=== PATIENT | female | born 1940 | race Caucasian/White ===

== ENCOUNTER 2019-05-18 12:37 | Outpatient (RCR) | payer MEDICARE, OTHER, SELFPAY | END 2019-06-16 00:01 | LOC: SPT 12:37 | PROVIDERS: Family Provider Family Medicine; Visit Provider Physician Assistant | DX: Z47.1 Aftercare following joint replacement surgery (principal); Z96.612 Presence of left artificial shoulder joint | CPT/HCPCS: 97110 ×8; 97140; 97161 ==

== ENCOUNTER 2019-06-17 13:59 | Outpatient (RCR) | payer MEDICARE, SELFPAY | END 2019-07-17 23:59 | disposition home or self-care (01) | LOC: SPT 13:59 | PROVIDERS: Family Provider Family Medicine; Visit Provider Physician Assistant | DX: M25.512 Pain in left shoulder (principal); Z96.612 Presence of left artificial shoulder joint | CPT/HCPCS: 97110; 97140 ==

== ENCOUNTER 2019-07-18 06:00 | Outpatient (RCR) | payer MEDICARE, SELFPAY | END 2019-08-15 23:59 | disposition home or self-care (01) | LOC: SPT 06:00 | PROVIDERS: Family Provider Family Medicine; Visit Provider Physician Assistant | DX: Z47.1 Aftercare following joint replacement surgery (principal); Z96.612 Presence of left artificial shoulder joint | CPT/HCPCS: 97110; 97140 ==

== ENCOUNTER 2019-07-23 13:05 | Outpatient (CLI) | payer MEDICARE, SELFPAY ==
--- NOTE | 2019-07-23 13:10 | MM_ITS ---
WS: [id number] SCREENING DIGITAL MAMMOGRAM WITH CAD HISTORY: SCREENING COMPARISON: 06/13/2016, 07/15/2017, 07/22/2018 Bilateral CC and MLO views submitted. Computer aided detection analyzed. Breast composition: There are scattered areas of fibroglandular density. No suspicious masses, microc alcifications or architectural distortion. 4 mm nodule persists in the inferior medial RIGHT breast. Minimal increase in size over multiple prior years. Thought to be a benign lymph node on a prior imag ing study. MM/[id number] IMPRESSION: BI-RADS: 2-Benign FOLLOW UP: 1 Year Follow-up
== END 2019-07-23 13:06 | disposition home or self-care (01) ==
LOC: RADSHAW 13:09
PROVIDERS: Family Provider Family Medicine; PCP Family Medicine; Visit Provider Family Medicine
DX: Z12.31 Encounter for screening mammogram for malignant neoplasm of breast (principal)
CPT/HCPCS: 77067

== ENCOUNTER 2019-08-16 06:00 | Outpatient (RCR) | payer MEDICARE, SELFPAY | END 2019-09-15 23:59 | disposition home or self-care (01) | LOC: SPT 06:00 | PROVIDERS: Family Provider Family Medicine; PCP Family Medicine; Visit Provider Physician Assistant | DX: Z47.1 Aftercare following joint replacement surgery (principal); Z96.612 Presence of left artificial shoulder joint | CPT/HCPCS: 97110 ==

== ENCOUNTER 2019-12-14 09:58 | Outpatient (CLI) | payer MEDICARE, SELFPAY ==
[2019-12-14 10:36] LABS: Basophils % 0.4 %; Eosinophils # 0.1 10^3/uL (0.0-0.8); Hematocrit 39.1 % (37.0-47.0); Hemoglobin 12.9 g/dL (11.5-15.3); Lymphocytes # 1.3 10^3/uL (0.8-4.8); Lymphocytes % 25.4 %; Mean Platelet Volume 9.1 fL (7.4-10.4); Monocytes # 0.6 10^3/uL (0.2-0.9); Monocytes % 11.8 %; Neutrophils % 60.2 %; Nucleated Red Blood Cells % 0 %; Platelet Count 252 10^3/cmm (130-400); Red Blood Count 4.16 10^6/uL (4.1-5.3); Red Cell Distribution Width 12.5 % (12.1-15.1)
[2019-12-14 10:58] LABS: Alanine Aminotransferase 18 U/L (0-33); Albumin Level 4.5 g/dL (3.5-5.2); Alkaline Phosphatase 93 IU/L (35-105); Anion Gap 15.2 (5-19); Aspartate Amino Transferase 21 U/L (0-32); Blood Urea Nitrogen 16 mg/dL (8-23); Calcium 9.7 mg/dL (8.5-10.5); Carbon Dioxide 27 mmol/L (22-29); Chloride 101 mmol/L (98-107); Glucose 96 mg/dL (65-115); Osmolality Calculated 284 mOsm/kg (285-295); Potassium 4.2 mmol/L (3.5-5.1); Sodium 139 mmol/L (136-145); Total Bilirubin 0.2 mg/dL (0.15-1.2); Total Protein 7.5 g/dL (6.6-8.7)
[2019-12-14 12:40] LABS: CA 125 7.4 U/mL (0-35)
[2019-12-14 13:07] LABS: Erythrocyte Sedimentation Rate 13 mm/hr (0-15)
--- NOTE | 2019-12-15 06:39 | ONC FU_ITS ---
Dr. Welsh Patient Follow-Up Note Patient: Giovana Castillo Unit #: [id number]: 1940 Dicatated By: Dimitri Welsh M.D.Date of Visit:Dec 14, 2019 Onc Med Follow-up/Prog Note Chief Complaint: Ovarian cancer. 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 She underwent hysterectomy/bilateral salpingo-oophorectomy in April of 2010. 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 The tumor measured 9.5 x 8 x 6 cm. In May of 2010 she underwent a staging procedure with robotic-assisted pelvic and periaortic lymphadenectomy, omentectomy, and with biopsies of the paracolic gutters bilaterally, bilateral pelvic peritoneum, anterior and posterior cul-de-sac, and right hemidiaphragm. There was no evidence of residual malignancy in any of those specimens, and the pelvic and abdominal washings also were negative. Because of the histology of the tumor, she was advised to undergo adjuvant chemotherapy. She was given 6 cycles of carboplatin/Taxol, which she completed in October of 2010. Thus far during followup there has been no evidence of recurrence. Her other medical illnesses include GERD, degenerative arthritis, osteopenia, and depression. She is a nonsmoker. She is seen for a scheduled visit. She has been feeling good generally. She does have some fatigue, and she also complains that her legs feel weak, but she says she keeps going. ECOG score is 1. She has good appetite. She has not had fever. She does have some hot flashes. She has been having sinus drainage, and she complains that her right ear is clogged. She occasionally has burning in her mouth, and she also occasionally has sore throat. She does not complain of cough, and she is not having shortness of breath or chest pain. Her acid reflux is adequately managed with omeprazole. She has no other GI or complaints. She does complain of having generalized soreness. Her most significant pain is in the shoulder areas, and she has had some ongoing problems with her left shoulder following a total shoulder replacement in March 2019. She does not complain of headache or dizziness. She has no focal neurologic symptoms. Medications: AmLODIPine Besylate 1 Tablet (of 5 mg) Oral daily, Magnesium 300 mg - Take 1 Capsule Oral daily, Multiple Vitamin 1 Tablet Oral daily, Omeprazole 1 (20 mg) Capsule Delayed Release Oral daily, TraZODone HCl 0.5 (150 mg) Tablet Oral at bedtime, Vitamin D (Cholecalciferol) 1 Tablet (of 400 Units) Oral daily, Zoloft 1 (50 mg) Tablet Oral daily Allergies: Benadryl and Codeine Sulfate. Review of Systems: Constitutional - She has some fatigue and her activity is limited due to joint pain. She has good appetite. She has not had fever. She still has some hot flashes. ECOG score is 1, ENMT - She complains that her right ear is clogged. She has sinus drainage. She occasionally has burning in her mouth she occasionally has sore throat. She has no difficulty swallowing, Hematologic/Lymphatic - No abnormal bruising or bleeding, Respiratory - No shortness of breath. No cough. No pleuritic pain or hemoptysis, Cardiovascular - No angina pain. No palpitations, Gastrointestinal - No nausea or vomiting. She has acid reflux. It is managed adequately with omeprazole. No diarrhea or constipation. No blood in the stool or black stools, Genitourinary (F) - No dysuria or hematuria. No urinary frequency. No urgency or incontinence, Musculoskeletal - She has generalized joint pain and soreness, but especially in the shoulders. She has had a left shoulder replacement. She complains that her legs feel weak, Integumentary - , Neurologic - No headache or dizziness. No numbness or tingling. No other focal neurologic symptoms, Psychiatric - No anxiety or depression. No insomnia. Vital Signs: Performed on Dec 14, 2019 11:31 Height - 63.00 in Weight - 152.4 lbs (HIGH) BSA - 1.72 sq.m BMI - 27.00 Temperature - 98.3 F (LOW) Pulse - 81 /min Respiration - 18 /min BP - 133/72 mm(hg) O2 Sat - 98 % Pain - 0 Physical Examination: Constitutional - She looks pretty good generally, Eyes - Sclerae nonicteric. Conjunctivae clear, ENMT - Her right external ear canal is occluded with cerumen. There are no lesions noted in the oral cavity, Hematologic/Lymphatic - No cervical, clavicular, or axillary adenopathy, Respiratory - Lungs are clear with good air movement bilaterally, Cardiovascular - Heart rhythm is regular. There is a II/ systolic murmur. There is no gallop or rub noted, Abdomen - Soft. Liver and spleen are not enlarged. There is no abdominal mass or ascites noted and there is no inguinal adenopathy, Extremities - No edema, Neurologic - No focal neurologic deficits noted. Lab/Imaging: Test performed on Dec 14, 2019 10:11 Sodium 139 mmol/L Potassium 4.2 mmol/L Chloride 101 mmol/L CO2 27 mmol/L Anion Gap 15.2 BUN 16 mg/dL Creatinine 0.6 mg/dL Cr Clearance (Est) 85.69 mL/min Glucose 96 mg/dL Calcium 9.7 mg/dL Protein, Total 7.5 g/dL Albumin 4.5 g/dL Globulin 3.0 g/dL Bilirubin, Total 0.2 mg/dL ALT (SGPT) 18 U/L AST (SGOT) 21 U/L Alkaline Phosphatase 93 IU/L ESR (Sed Rate) 13 mm/hr WBC 5.0 10 3/uL RBC 4.16 10 6/uL HGB 12.9 g/dL HCT 39.1 % MCV 94.0 fL MCH 31.0 pg MCHC 33.0 g/dL RDW 12.5 % Platelet Count 252 10 3/cmm MPV 9.1 fL Neutrophils 3.0 10 3/uL Lymphocytes 1.3 10 3/uL Monocytes 0.6 10 3/uL Eosinophils 0.1 10 3/uL Basophils 0.0 10 3/uL Neutrophil % 60.2 % Lymphocyte % 25.4 % Monocyte % 11.8 % Eosinophil % 2.0 % Basophils % 0.4 % NRBC % 0 % CA-125 7.4 U/mL Impression: 1. 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 She had complete resection with surgery which included hysterectomy/bilateral salpingo-oophorectomy in April 2010 followed by robotic-assisted pelvic and periaortic lymphadenectomy, omentectomy, and staging biopsies in May 2010. 2. Due to the histology of the tumor, she was given adjuvant chemotherapy with 6 cycles of carboplatin/Taxo, completed in October 2010. She has since then been followed on observation/expectant management. Her other medical illnesses include: 3. GERD. 4. Degenerative arthritis. 5. Osteopenia. 6. She has a history of depression. She has been followed on observation/expectant management after completing chemotherapy. During follow-up she has had some gradual decline in her activity tolerance, but overall she has been doing well clinically with no evidence of recurrence of the ovarian cancer. Plan: She remains on observation/expectant management. I will see her again in one year. Signed By: Dimitri Welsh M.D. <<Signature on File>>
== END 2019-12-14 09:59 | disposition home or self-care (01) ==
PROVIDERS: PCP Family Medicine; Visit Provider Internal Medicine Medical Oncology
DX: Z08 Encounter for follow-up examination after completed treatment for malignant neoplasm (principal); Z85.43 Personal history of malignant neoplasm of ovary; K21.9 Gastro-esophageal reflux disease without esophagitis; M19.90 Unspecified osteoarthritis, unspecified site; M85.80 Other specified disorders of bone density and structure, unspecified site; Z86.59 Personal history of other mental and behavioral disorders; Z92.21 Personal history of antineoplastic chemotherapy; Z90.710 Acquired absence of both cervix and uterus; Z90.722 Acquired absence of ovaries, bilateral
CPT/HCPCS: 80053; 85025; 85651; 86304; G0463

== ENCOUNTER 2020-02-11 16:09 | Outpatient (CLI) | payer MEDICARE, SELFPAY ==
--- NOTE | 2020-02-11 16:27 | MR_ITS ---
WS: [id number] MRI LUMBAR SPINE NONCONTRAST TECHNIQUE: Sagittal T1, T2 and STIR imaging. Axial T1 and T2 imaging. CLINICAL INFORMATION: LUMBAR RADICULOPATHY COMPARISON: None. FINDINGS: Mild lumbar curve. No acute compression. Grade 1 anterolisthesis L3 on L4. Moderate to severe central canal stenosis L3-4 unchanged since 2017. L1-L2: Normal. L2-L3: Mild disc bulging with osteophytic ridging. Narrowing of the left greater than right subarticu lar recess. Mild facet arthropathy. Mild left foraminal narrowing. Mild central canal stenosis. L3-L4: Grade 1 anterolisthesis L3 on L4 with severe central canal stenosis. Moderate facet arthropath y ligament flavum hypertrophy. Moderate bilateral foraminal narrowing worse on the left. L4-L5: Mild disc bulging with impingement left subarticular recess. Slight effacement of ventral thec al sac. Foramen are patent. Prior left hemilaminectomy. L5-S1: Small central disc protrusion with slight contact of the traversing S1 nerve roots with mild c entral canal stenosis. Moderate left and no significant right foraminal narrowing. Mild facet arthrop athy. Moderate thoracic kyphosis visualized on multi [employer] imaging. MR/MR lumbar spine wo con* [id number] IMPRESSION: 1. Severe central canal stenosis L3-4 with grade 1 anterolisthesis. This appea rs unchanged since 2017. 2. Mild central canal stenosis L2-3 with narrowing of the left greater than ri ght subarticular recess. 3. Prior left hemilaminectomy L4-5. 4. Tiny central disc protrusion L5-S1 with slight contact of the traversing S1 nerve roots. 5. Multilevel mild to moderate foraminal narrowing worse at bilateral L3-4, an d left L5-S1.
== END 2020-02-11 16:10 | disposition home or self-care (01) ==
PROVIDERS: PCP Family Medicine; Visit Provider Physical Medicine & Rehabilitation
DX: M54.16 Radiculopathy, lumbar region (principal); R29.898 Other symptoms and signs involving the musculoskeletal system; M48.061 Spinal stenosis, lumbar region without neurogenic claudication; M96.1 Postlaminectomy syndrome, not elsewhere classified; M51.27 Other intervertebral disc displacement, lumbosacral region
CPT/HCPCS: 72148

== ENCOUNTER 2020-07-25 09:42 | Outpatient (CLI) | payer MEDICARE, SELFPAY ==
--- NOTE | 2020-07-25 09:46 | MM_ITS ---
WS: [id number] BILATERAL SCREENING DIGITAL MAMMOGRAM WITH CAD HISTORY: SCREENING COMPARISON: 07/23/2019 and 07/22/2018 Bilateral CC and MLO views submitted. Computer aided detection analyzed. Breast composition: There are scattered areas of fibroglandular density. No suspicious masses, microc alcifications or architectural distortion. Benign lymph node in the anterior medial RIGHT breast. MM/[id number] IMPRESSION: BI-RADS: 2-Benign FOLLOW UP: 1 Year Follow-up
== END 2020-07-25 09:43 | disposition home or self-care (01) ==
LOC: RADSHAW 09:44
PROVIDERS: PCP Family Medicine; Visit Provider Family Medicine
DX: Z12.31 Encounter for screening mammogram for malignant neoplasm of breast (principal)
CPT/HCPCS: 77067

== ENCOUNTER 2020-10-26 14:41 | Outpatient (CLI) | payer MEDICARE, SELFPAY ==
--- NOTE | 2020-10-26 14:44 | CT_ITS ---
WS: [id number] CT THORACIC SPINE TECHNIQUE: Noncontrast CT of the thoracic spine with coronal and sagittal reformatted images. CLINICAL INFORMATION: T SPINE PAIN COMPARISON: None. DLP: 424.[address] scans at [facility] use at least one of these dose optimization techniques: automat ed exposure control; mA and/or kV adjustment per patient size (includes targeted exams where dose is matched to clinical indication); or iterative reconstruction. FINDINGS: Advanced thoracic kyphosis. Mild thoracic curve. Chronic anterior wedging in the mid thoracic spine w ith bony ankylosis. Alignment is similar in appearance to the MRI February 11, 2020. Hypertrophic genao es in the mid thoracic spine. No acute appearing compression fractures. Chronic appearing anterior wedging at T8 and T9. Disc space narrowing worse at T7-8, T8-9 T9-10. No h igh-grade central canal stenosis. Mild chronic emphysematous changes. Visualized lungs are well aerated. Calcified right hilar nodes. P ostoperative changes left TSA. Adrenal glands are normal. CT/CT thoracic spin wo con* [id number] IMPRESSION: 1. Moderate thoracic kyphosis. Chronic anterior wedging in the mid thoracic sp ine more prominent at T8 and T9. No acute appearing compression fractures. 2. Disc space narrowing worse at T7-T9. 3. 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 4. No high-grade central canal stenosis. 5. No acute appearing thoracic spine findings.
== END 2020-10-26 14:42 | disposition home or self-care (01) ==
LOC: RADWPI 14:43
PROVIDERS: PCP Family Medicine; Visit Provider Family Medicine
DX: M54.6 Pain in thoracic spine (principal); M43.24 Fusion of spine, thoracic region; M40.294 Other kyphosis, thoracic region; M48.54XA Collapsed vertebra, not elsewhere classified, thoracic region, initial encounter for fracture; X58.XXXA Exposure to other specified factors, initial encounter
CPT/HCPCS: 72128

== ENCOUNTER → 2020-11-04 08:41 | Outpatient (BNVA) | payer MEDICARE, SELFPAY | PROVIDERS: PCP Family Medicine; Referring Provider Family Medicine; Visit Provider Anesthesiology Pain Medicine | DX: G89.29 Other chronic pain (principal); M79.18 Myalgia, other site; M54.9 Dorsalgia, unspecified; M51.36 Other intervertebral disc degeneration, lumbar region; M47.816 Spondylosis without myelopathy or radiculopathy, lumbar region; M54.16 Radiculopathy, lumbar region; M48.062 Spinal stenosis, lumbar region with neurogenic claudication; M47.814 Spondylosis without myelopathy or radiculopathy, thoracic region; Z79.891 Long term (current) use of opiate analgesic; Z98.890 Other specified postprocedural states | CPT/HCPCS: 20553; 99205; J1030; J3490 ==

== ENCOUNTER → 2020-12-02 09:05 | Outpatient (BNVA) | payer MEDICARE, SELFPAY | PROVIDERS: PCP Family Medicine; Visit Provider Anesthesiology Pain Medicine | DX: G89.29 Other chronic pain (principal); M48.062 Spinal stenosis, lumbar region with neurogenic claudication; M51.36 Other intervertebral disc degeneration, lumbar region; M47.816 Spondylosis without myelopathy or radiculopathy, lumbar region; M47.814 Spondylosis without myelopathy or radiculopathy, thoracic region; M54.16 Radiculopathy, lumbar region; M54.9 Dorsalgia, unspecified; Z98.890 Other specified postprocedural states; Z87.891 Personal history of nicotine dependence | CPT/HCPCS: 99215 ==

== ENCOUNTER → 2020-12-12 12:57 | Outpatient (BNVA) | payer MEDICARE, SELFPAY | PROVIDERS: PCP Family Medicine; Visit Provider Anesthesiology Pain Medicine | DX: G89.29 Other chronic pain (principal); M54.6 Pain in thoracic spine; M48.062 Spinal stenosis, lumbar region with neurogenic claudication | CPT/HCPCS: 62321 ==

== ENCOUNTER 2020-12-14 09:54 | Outpatient (CLI) | payer MEDICARE, SELFPAY ==
[2020-12-14 10:28] LABS: Basophils % 0.3 %; Eosinophils % 0.5 %; Hematocrit 40.2 % (37.0-47.0); Hemoglobin 13.3 g/dL (11.5-15.3); Lymphocytes # 1.1 10^3/uL (0.8-4.8); Lymphocytes % 19.1 %; Mean Corpuscular HGB Conc 33.1 g/dL (30.0-36.0); Mean Corpuscular Hemoglobin 30.6 pg (28.0-34.0); Mean Corpuscular Volume 92.6 fL (81-99); Mean Platelet Volume 9.4 fL (7.4-10.4); Monocytes # 0.6 10^3/uL (0.2-0.9); Monocytes % 9.7 %; Neutrophils # 4.06 10^3/uL (1.8-7.7); Neutrophils % 70.1 %; Nucleated Red Blood Cells % 0 %; Platelet Count 226 10^3/cmm (130-400); Red Blood Count 4.34 10^6/uL (4.1-5.3); Red Cell Distribution Width 12.5 % (12.1-15.1); White Blood Count 5.8 10^3/uL (4.0-10.0)
[2020-12-14 10:59] LABS: Alanine Aminotransferase 15 U/L (0-33); Albumin Level 4.3 g/dL (3.5-5.2); Alkaline Phosphatase 84 IU/L (35-105); Anion Gap 10.9 (5-19); Aspartate Amino Transferase 16 U/L (0-32); Blood Urea Nitrogen 14 mg/dL (8-23); CA 125 6.7 U/mL (0-35); Carbon Dioxide 28 mmol/L (22-29); Chloride 101 mmol/L (98-107); Globulin 2.5 g/dL (1.3-4.6); Glucose 125 mg/dL (65-115); Osmolality Calculated 284 mOsm/kg (285-295); Potassium 3.9 mmol/L (3.5-5.1); Sodium 136 mmol/L (136-145); Total Bilirubin 0.3 mg/dL (0.15-1.2); Total Protein 6.8 g/dL (6.6-8.7)
--- NOTE | 2020-12-14 12:33 | ONC FU_ITS ---
Dr. Welsh Patient Follow-Up Note Patient: Giovana Castillo Unit #: [id number]: [id number] Dicatated By: Dimitri Welsh M.D.Date of Visit:Dec 14, 2020 Onc Med Follow-up/Prog Note Chief Complaint: Ovarian cancer. 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 She underwent hysterectomy/bilateral salpingo-oophorectomy in April of 2010. 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 The tumor measured 9.5 x 8 x 6 cm. In May of 2010 she underwent a staging procedure with robotic-assisted pelvic and periaortic lymphadenectomy, omentectomy, and with biopsies of the paracolic gutters bilaterally, bilateral pelvic peritoneum, anterior and posterior cul-de-sac, and right hemidiaphragm. There was no evidence of residual malignancy in any of those specimens, and the pelvic and abdominal washings also were negative. Because of the histology of the tumor, she was advised to undergo adjuvant chemotherapy. She was given 6 cycles of carboplatin/Taxol, which she completed in October of 2010. Thus far during followup there has been no evidence of recurrence. Her other medical illnesses include GERD, degenerative arthritis, osteopenia, and depression. She is a nonsmoker. She is seen for a scheduled visit. Her main complaint is that she has been having more back pain, more recently in the upper back, which she has pain in the lumbar area as well. She has been getting treatment through the pain clinic. She underwent an attempted epidural injection at the T8/9 level 2 days ago. The epidural space was not able to be accessed due to her severe kyphotic curve. Despite the fact that the procedure was unsuccessful, her pain has improved somewhat since then. She does have limited activity, but she is still able to do housework. ECOG score is 1. Her appetite is good. She does not have fever or night sweats. She has some allergy related sinus drainage and she says that at times it feels like there is a lump in her throat. She does not have shortness of breath, cough, or chest pain. She has no GI complaints. Her acid reflux is adequately managed with omeprazole. She sometimes has urgency with urination, but bladder function remains adequate. She has no other joint or bone pain. She does not complain of headache. She says her balance is not real good. She has no focal neurologic symptoms. Medications: AmLODIPine Besylate 1 Tablet (of 5 mg) Oral daily, Magnesium 300 mg - Take 1 Capsule Oral daily, Multiple Vitamin 1 Tablet Oral daily, Omeprazole 1 (20 mg) Capsule Delayed Release Oral daily, TraZODone HCl 0.5 (150 mg) Tablet Oral at bedtime, Vitamin D (Cholecalciferol) 1 Tablet (of 400 Units) Oral daily, Zoloft 1 (50 mg) Tablet Oral daily Allergies: Benadryl and Codeine Sulfate. Vital Signs: Weight is 152 pounds. Blood pressure 142/80, pulse 77, respirations 18, temp 97.7 degrees, and oxygen saturation 97%. Physical Examination: Constitutional - She looks pretty good generally, Eyes - Sclerae nonicteric. Conjunctivae clear, ENMT - No lesions noted in the oral cavity, Hematologic/Lymphatic - No cervical, clavicular, or axillary adenopathy, Respiratory - Lungs are clear with good air movement bilaterally, Cardiovascular - Heart rhythm is regular. There is a II/ systolic murmur. There is no gallop or rub noted, Abdomen - Soft. Liver and spleen are not enlarged. There is no abdominal mass or ascites noted and there is no inguinal adenopathy, Extremities - There is some chronic swelling of the left leg, Neurologic - No focal neurologic deficits noted. Lab/Imaging: Test performed on Dec 14, 2020 10:08 Sodium 136 mmol/L Potassium 3.9 mmol/L Chloride 101 mmol/L CO2 28 mmol/L Anion Gap 10.9 BUN 14 mg/dL Creatinine 0.5 mg/dL Cr Clearance (Est) 101.2000 mL/min Glucose 125 mg/dL Osmolality - Calculated 284 mOsm/kg Calcium 9.0 mg/dL Protein, Total 6.8 g/dL Albumin 4.3 g/dL Globulin 2.5 g/dL Bilirubin, Total 0.3 mg/dL ALT (SGPT) 15 U/L AST (SGOT) 16 U/L Alkaline Phosphatase 84 IU/L WBC 5.8 10 3/uL RBC 4.34 10 6/uL HGB 13.3 g/dL HCT 40.2 % MCV 92.6 fL MCH 30.6 pg MCHC 33.1 g/dL RDW 12.5 % Platelet Count 226 10 3/cmm MPV 9.4 fL Neutrophils 4.06 10 3/uL Lymphocytes 1.1 10 3/uL Monocytes 0.6 10 3/uL Eosinophils 0.0 10 3/uL Basophils 0.0 10 3/uL Neutrophil % 70.1 % Lymphocyte % 19.1 % Monocyte % 9.7 % Eosinophil % 0.5 % Basophils % 0.3 % NRBC % 0 % CA-125 6.7 U/mL Problem List: 1. Clear cell carcinoma of the left ovary, stage I. She had complete resection with surgery which included hysterectomy/bilateral salpingo-oophorectomy in April 2010 followed by robotic-assisted pelvic and periaortic lymphadenectomy, omentectomy, and staging biopsies in May 2010. 2. GERD. 3. Degenerative arthritis/degenerative disease of the spine. 5. Osteopenia. 6. She has a history of depression. 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 She had complete resection with surgery which included hysterectomy/bilateral salpingo-oophorectomy in April 2010 followed by robotic-assisted pelvic and periaortic lymphadenectomy, omentectomy, and staging biopsies in May 2010. Due to the histology of the tumor, she was given adjuvant chemotherapy with 6 cycles of carboplatin/Taxol, completed in October 2010. She was then followed on expectant management. During follow-up she has been doing pretty well clinically. During the past year she has had increasing problems associated with degenerative disease of the spine, for which she has been receiving treatment through the pain clinic. There has been no evidence, though, of recurrence of her ovarian cancer, now 10 years out from completion of treatment. She remains on expectant management. She is aware of the need to continue with her yearly mammogram screening and she also should have a yearly CA-125 level. At this point she is going to continue her regular follow-up with Dr. Wyatt. I will plan to see her again only as needed. Signed By: Dimitri Welsh M.D. <<Signature on File>>
== END 2020-12-14 09:55 | disposition home or self-care (01) ==
LOC: ONCMED 10:00
PROVIDERS: PCP Family Medicine; Visit Provider Internal Medicine Medical Oncology
DX: Z08 Encounter for follow-up examination after completed treatment for malignant neoplasm (principal); Z85.43 Personal history of malignant neoplasm of ovary; Z90.710 Acquired absence of both cervix and uterus; Z90.79 Acquired absence of other genital organ(s); Z90.722 Acquired absence of ovaries, bilateral; K21.9 Gastro-esophageal reflux disease without esophagitis; M47.9 Spondylosis, unspecified; M85.80 Other specified disorders of bone density and structure, unspecified site; Z92.21 Personal history of antineoplastic chemotherapy; Z79.899 Other long term (current) drug therapy
CPT/HCPCS: 36415; 80053; 85025; 86304; G0463

== ENCOUNTER → 2020-12-26 09:26 | Outpatient (BNVA) | payer MEDICARE, SELFPAY | PROVIDERS: PCP Family Medicine; Visit Provider Anesthesiology Pain Medicine | DX: G89.29 Other chronic pain (principal); M54.16 Radiculopathy, lumbar region; M48.062 Spinal stenosis, lumbar region with neurogenic claudication; M51.36 Other intervertebral disc degeneration, lumbar region; M47.816 Spondylosis without myelopathy or radiculopathy, lumbar region; M47.814 Spondylosis without myelopathy or radiculopathy, thoracic region; M54.9 Dorsalgia, unspecified; Z98.890 Other specified postprocedural states; Z79.891 Long term (current) use of opiate analgesic | CPT/HCPCS: 99214 ==

== ENCOUNTER 2021-08-11 16:30 | Inpatient (IN) | payer MEDICARE, SELFPAY ==
[2021-08-11] VITALS (7 sets, daily range): BP systolic 119–210; BP diastolic 73–95; PULSE 75–103; RESP 15–18; TEMP 36.4–36.5; O2SAT 94–99; BMI 27.4; BMI 28.0
--- NOTE | 2021-08-11 16:34 | ED_ITS ---
Documented by User: Marcelino Landers DO 08/12/21 07:30 HPI - Fall General: Chief Complaint: Extremity Injury, Upper Stated Complaint: FALL Time Seen by Provider: 08/11/21 16:33 Source: patient Mode of arrival: EMS History of Present Illness: 81-year-old female presents emergency room via EMS complaining of right humerus pain. It began after she fell at home she stumbled as she was turning and fell and hit a cabinet as she went down there with her right shoulder she denies striking her head she denies any loss consciousness. Denies any chest pain or shortness of breath. Previously fell on the lef shoulder injury several years ago. MD complaint: fall Onset (ago): minute(s) Fall from: standing Fall witnessed: no Place fall occurred: home Loss of consciousness: None Prolonged down time: no Symptoms prior to fall: none Context: tripped/slipped Location of injury: head Location of injury - extremities: Right: shoulder and arm Severity: severe Quality: sharp Associated symptoms-after fall: Denies abdominal pain, chest pain, confusion, difficulty walking, headache(s), hematuria, lightheadedness, neck pain, numbness, short of breath, vertigo or weakness Review of Systems Const: Denies: fever(s), chills, body aches, change in appetite, fatigue or malaise ENMT: Denies: throat pain, ear or mastoid pain, nasal discharge or nasal congestion Card: Denies: chest pain or lightheadedness Resp: Denies: dyspnea, productive cough or non-productive cough GI: Denies: abdominal pain : Denies: hematuria Musc: Denies: neck pain Skin/Breast: Denies: rash or pruritus Neuro: Denies: headache(s), difficulty walking, vertigo or confusion PFSH ED PFSH: Medical History Depression Family history of malignant melanoma History of ovarian cancer Left bundle branch block Ovarian cancer Surgical History H/O total hysterectomy History of hysterectomy History of left knee replacement Family History Mother Stroke Hypertension Social History Smoking and tobacco status: never smoked Alcohol intake: never Marital status: Physical Exam Const: GENERAL APPEARANCE: cooperative ORIENTATION/CONSCIOUSNESS: Yes awake, Yes oriented to person, Yes oriented to place and Yes oriented to time HENMT: COMMON NORMALS: normocephalic, atraumatic and hearing grossly normal bilaterally HEAD & SCALP: normocephalic and atraumatic Neck/C-Spine: COMMON NORMALS: no JVD Resp: COMMON NORMALS: normal respiratory effort, No retractions, No use of accessory muscles and clear to auscultation bilaterally AUSCULTATION: clear to auscultation bilaterally Cardio: COMMON NORMALS: no JVD, regular rate, regular rhythm and No murmurs present (Cardio) RATE: regular rate RHYTHM: regular rhythm GI: COMMON NORMALS: Soft to palpation and No hepatosplenomegaly present AUSCULTATION: Yes normoactive bowel sounds PALPATION: Yes Soft to palpation, No Tenderness to palpation present (GI), No Guarding due to palpation present (GI) and Yes No hepatosplenomegaly present Extremity: OTHER: Obvious deformity of the proximal humerus on the right combined with her history consistent with a proximal humerus fracture Neuro: SENSORIUM/ORIENTATION: Yes oriented to person, Yes oriented to place and Yes oriented to time Skin: COMMON NORMALS: no rashes or lesions noted GENERAL SKIN EXAM: no rashes or lesions noted Course Vital Signs: Vital signs: Vital Signs Temperature 98.2 F 08/12/21 07:25 Pulse Rate 77 08/12/21 07:25 Respiratory Rate 16 08/12/21 07:25 Blood Pressure 146/82 08/12/21 07:25 Pulse Oximetry 95 08/12/21 07:25 MDM - Fall Medical Decision Making Plain films show proximal humerus fracture him concerned that it appears the head of the humerus may be dislocated. It is disarticulated from the shaft due to the fracture. However it does not appear to be anterior. Is difficult to tell based on plain film CT is pending. care signed out to Dr. Zepeda at change of shift. See final notes for diagnosis and disposition. 81-year-old patient post fall checked out to me by Dr. Landers at shift change. This lady has a humeral neck fracture, that is significantly displaced. On CT, she is in joint. She has had 3 doses of morphine and 1 dose of fentanyl in the ER without significantly controlled pain. She is neurologically intact, and there is no wrist drop present. Her pulses are good. She is treated with a shoulder immobilizer. The patient does not appear that she would do well at home, as she is somewhat frail, has an elderly , and has yet to have her pain controlled. She will be admitted. Orthopedics was consulted by phone from the ER. Lab Data : 08/12/21 05:20 08/12/21 05:20 Radiology Impressions Shoulder X-Ray 08/11/21 16:40 IMPRESSION: 1. Comminuted displaced proximal right humerus fracture. Humerus X-Ray 08/11/21 16:41 IMPRESSION: 1. Comminuted displaced fracture in the proximal right humerus. 2. Inferior subluxation of the humeral head. A dislocation cannot be entirely excluded. Consider follow-up with CT imaging. ADDENDUM: 08/11/21 1706 This study is correlated to the right shoulder images on 08/11/2021. There is no evidence for shoulder dislocation. Inferior subluxation may relate to a hemarthrosis. Shoulder CT 08/11/21 17:25 IMPRESSION: 1. Severely comminuted displaced fracture in the proximal right humerus involving the head and neck. Laboratory Results WBC 7.0 10^3/uL (4.0-10.0) 08/11/21 17:15 RBC 4.47 10^6/uL (4.1-5.3) 08/11/21 17:15 Hgb 13.7 g/dL (11.5-15.3) 08/11/21 17:15 Hct 41.6 % (37.0-47.0) 08/11/21 17:15 MCV 93.1 fl (81-99) 08/11/21 17:15 MCH 30.6 pg (28.0-34.0) 08/11/21 17:15 MCHC 32.9 g/dL (30.0-36.0) 08/11/21 17:15 RDW 12.6 % (12.1-15.1) 08/11/21 17:15 Plt Count 202 10^3/cmm (130-400) 08/11/21 17:15 MPV 9.3 fL (7.4-10.4) 08/11/21 17:15 Neut % (Auto) 74.8 % 08/11/21 17:15 Lymph % (Auto) 16.7 % 08/11/21 17:15 Banks % (Auto) 6.8 % 08/11/21 17:15 Eos % (Auto) 0.7 % 08/11/21 17:15 Baso % (Auto) 0.3 % 08/11/21 17:15 Neut # (Auto) 5.21 10^3/uL (1.8-7.7) 08/11/21 17:15 Lymph # (Auto) 1.2 10^3/uL (0.8-4.8) 08/11/21 17:15 Banks # (Auto) 0.5 10^3/uL (0.2-0.9) 08/11/21 17:15 Eos # (Auto) 0.1 10^3/uL (0.0-0.8) 08/11/21 17:15 Baso # (Auto) 0.0 10^3/uL (0.0-0.1) 08/11/21 17:15 Nucleated RBC % (auto) 0 % 08/11/21 17:15 Nucleated RBCs # 0.0 /100WBC 08/11/21 17:15 Sodium 135 mmol/L (136-145) L 08/11/21 19:18 Potassium 3.4 mmol/L (3.5-5.1) L 08/11/21 19:18 Chloride 98 mmol/L (98-107) 08/11/21 19:18 Carbon Dioxide 26 mmol/L (22-29) 08/11/21 19:18 Anion Gap 14.4 (5-19) 08/11/21 19:18 BUN 17 mg/dL (8-23) 08/11/21 19:18 Creatinine 0.6 mg/dL (0.5-0.9) 08/11/21 19:18 GFR Calculation Not Reportable 08/11/21 19:18 Glucose 122 mg/dL (65-115) H 08/11/21 19:18 Calculated Osmolality 283 mOsm/kg (285-295) L 08/11/21 19:18 Calcium 9.4 mg/dL (8.5-10.5) 08/11/21 19:18 Total Bilirubin 0.3 mg/dL (0.15-1.2) 08/11/21 19:18 AST 23 U/L (0-32) 08/11/21 19:18 ALT 16 U/L (0-33) 08/11/21 19:18 Alkaline Phosphatase 78 IU/L (35-105) 08/11/21 19:18 Total Protein 7.3 g/dL (6.6-8.7) 08/11/21 19:18 Albumin 4.4 g/dL (3.5-5.2) 08/11/21 19:18 Globulin 2.9 g/dL (1.3-4.6) 08/11/21 19:18 Discharge Plan Discharge Patient Disposition: Admitted As Inpatient Admit Provider: Dale Enriquez Clinical Impression: Fracture of humerus Qualifiers: Encounter type: initial encounter Humerus Location: surgical neck Fracture type: closed Fracture morphology: 2-part Fracture alignment: displaced Laterality: right Qualified Code(s): S42.221A - 2-part displaced fracture of lewis gical neck of right humerus, initial encounter for closed fracture Condition: Fair Coding Level of Care Code ED Director Of Field Coordination for Chg Fwd Exam Comprehensive Documented by User: Krish Zepeda DO 08/11/21 22:53 HPI - Fall General: Chief Complaint: Extremity Injury, Upper Stated Complaint: FALL Time Seen by Provider: 08/11/21 16:33 PFSH ED PFSH: Medical History Depression Family history of malignant melanoma History of ovarian cancer Left bundle branch block Ovarian cancer Surgical History H/O total hysterectomy History of hysterectomy History of left knee replacement Family History Mother Stroke Hypertension Social History Smoking and tobacco status: never smoked Alcohol intake: never Marital status: Course Consultations: Consultation #1: az Consultation #2: annmarie Vital Signs: Vital signs: Vital Signs Temperature 98.2 F 08/12/21 07:25 Pulse Rate 77 08/12/21 07:25 Respiratory Rate 16 08/12/21 07:25 Blood Pressure 146/82 08/12/21 07:25 Pulse Oximetry 95 08/12/21 07:25 MDM - Fall Medical Decision Making 81-year-old patient post fall checked out to me by Dr. Landers at shift change. This lady has a humeral neck fracture, that is significantly displaced. On CT, she is in joint. She has had 3 doses of morphine and 1 dose of fentanyl in the ER without significantly controlled pain. She is neurologically intact, and there is no wrist drop present. Her pulses are good. She is treated with a shoulder immobilizer. The patient does not appear that she would do well at home, as she is somewhat frail, has an elderly , and has yet to have her pain controlled. She will be admitted. Orthopedics was consulted by phone from the ER. Lab Data : 08/12/21 05:20 08/12/21 05:20 Radiology Impressions Shoulder X-Ray 08/11/21 16:40 IMPRESSION: 1. Comminuted displaced proximal right humerus fracture. Humerus X-Ray 08/11/21 16:41 IMPRESSION: 1. Comminuted displaced fracture in the proximal right humerus. 2. Inferior subluxation of the humeral head. A dislocation cannot be entirely excluded. Consider follow-up with CT imaging. ADDENDUM: 08/11/21 9615 This study is correlated to the right shoulder images on 08/11/2021. There is no evidence for shoulder dislocation. Inferior subluxation may relate to a hemarthrosis. Shoulder CT 08/11/21 17:25 IMPRESSION: 1. Severely comminuted displaced fracture in the proximal right humerus involving the head and neck. Laboratory Results WBC 7.0 10^3/uL (4.0-10.0) 08/11/21 17:15 RBC 4.47 10^6/uL (4.1-5.3) 08/11/21 17:15 Hgb 13.7 g/dL (11.5-15.3) 08/11/21 17:15 Hct 41.6 % (37.0-47.0) 08/11/21 17:15 MCV 93.1 fl (81-99) 08/11/21 17:15 MCH 30.6 pg (28.0-34.0) 08/11/21 17:15 MCHC 32.9 g/dL (30.0-36.0) 08/11/21 17:15 RDW 12.6 % (12.1-15.1) 08/11/21 17:15 Plt Count 202 10^3/cmm (130-400) 08/11/21 17:15 MPV 9.3 fL (7.4-10.4) 08/11/21 17:15 Neut % (Auto) 74.8 % 08/11/21 17:15 Lymph % (Auto) 16.7 % 08/11/21 17:15 Banks % (Auto) 6.8 % 08/11/21 17:15 Eos % (Auto) 0.7 % 08/11/21 17:15 Baso % (Auto) 0.3 % 08/11/21 17:15 Neut # (Auto) 5.21 10^3/uL (1.8-7.7) 08/11/21 17:15 Lymph # (Auto) 1.2 10^3/uL (0.8-4.8) 08/11/21 17:15 Banks # (Auto) 0.5 10^3/uL (0.2-0.9) 08/11/21 17:15 Eos # (Auto) 0.1 10^3/uL (0.0-0.8) 08/11/21 17:15 Baso # (Auto) 0.0 10^3/uL (0.0-0.1) 08/11/21 17:15 Nucleated RBC % (auto) 0 % 08/11/21 17:15 Nucleated RBCs # 0.0 /100WBC 08/11/21 17:15 Sodium 135 mmol/L (136-145) L 08/11/21 19:18 Potassium 3.4 mmol/L (3.5-5.1) L 08/11/21 19:18 Chloride 98 mmol/L (98-107) 08/11/21 19:18 Carbon Dioxide 26 mmol/L (22-29) 08/11/21 19:18 Anion Gap 14.4 (5-19) 08/11/21 19:18 BUN 17 mg/dL (8-23) 08/11/21 19:18 Creatinine 0.6 mg/dL (0.5-0.9) 08/11/21 19:18 GFR Calculation Not Reportable 08/11/21 19:18 Glucose 122 mg/dL (65-115) H 08/11/21 19:18 Calculated Osmolality 283 mOsm/kg (285-295) L 08/11/21 19:18 Calcium 9.4 mg/dL (8.5-10.5) 08/11/21 19:18 Total Bilirubin 0.3 mg/dL (0.15-1.2) 08/11/21 19:18 AST 23 U/L (0-32) 08/11/21 19:18 ALT 16 U/L (0-33) 08/11/21 19:18 Alkaline Phosphatase 78 IU/L (35-105) 08/11/21 19:18 Total Protein 7.3 g/dL (6.6-8.7) 08/11/21 19:18 Albumin 4.4 g/dL (3.5-5.2) 08/11/21 19:18 Globulin 2.9 g/dL (1.3-4.6) 08/11/21 19:18 Discharge Plan Discharge Patient Disposition: Admitted As Inpatient Admit Provider: Dale Enriquez Clinical Impression: Fracture of humerus Qualifiers: Encounter type: initial encounter Humerus Location: surgical neck Fracture type: closed Fracture morphology: 2-part Fracture alignment: displaced Laterality: right Qualified Code(s): S42.221A - 2-part displaced fracture of surgical neck of right humerus, initial encounter for closed fracture Condition: Fair Coding Level of Care Code ED Director Of Field Coordination for g Fwd Exam Comprehensive
--- NOTE | 2021-08-11 16:40 | XRR_ITS ---
PROCEDURE INFORMATION: Exam: XR Right Shoulder Exam date and time: 08/11/2021 4:40 PM Age: 81 years old Clinical indication: Pain; Shoulder; Right; Additional info: Pain/fall/trauma TECHNIQUE: Imaging protocol: XR Right shoulder. Views: 2 or more views. COMPARISON: CR XR shoulder RT min 2V* [id number] 01/04/2020 5:02 PM FINDINGS: Bones/joints: Three views including a scapular Y-view. Comminuted displaced fracture involving the proximal neck of the right humerus and superolateral humeral head. There is inferior subluxation of the humeral head, most likely due to a hemarthrosis. The other bones appear intact. Soft tissues: Normal. XR/XR shoulder RT min 2V* [id number] IMPRESSION: 1. Comminuted displaced proximal right humerus fracture.
--- NOTE | 2021-08-11 16:41 | XRR_ITS ---
PROCEDURE INFORMATION: Exam: XR Right Humerus Exam date and time: 08/11/2021 4:41 PM Age: 81 years old Clinical indication: Pain; Upper arm; Right; Additional info: Pain/trauma TECHNIQUE: Imaging protocol: XR Right humerus. Views: 2 or more views. COMPARISON: CR XR shoulder RT min 2V* [id number] 01/04/2020 5:02 PM FINDINGS: Bones/joints: Comminuted displaced fracture involving the neck of the proximal right humerus and superolateral humeral head. Inferior displacement of the humeral head relative to the glenoid. Soft tissues: Normal. XR/[place] [id number] IMPRESSION: 1. Comminuted displaced fracture in the proximal right humerus. 2. Inferior subluxation of the humeral head. A dislocation cannot be entirely excluded. Consider follow-up with CT imaging.
[2021-08-11] MEDS: morphine 4 mg/mL SDV 1 mL IVP ×3 (16:56→20:20)
[2021-08-11] MEDS: ondansetron 2 mg/ML SDV 2 mL 4 MG IVP (16:57)
--- NOTE | 2021-08-11 17:25 | CTR_ITS ---
PROCEDURE INFORMATION: Exam: CT Right Upper Extremity Without Contrast, Shoulder Exam date and time: 08/11/2021 5:25 PM Age: 81 years old Clinical indication: Injury or trauma; Fracture, traumatic injury; Displaced; Right; Neck of humerus; Patient HX: Fall on ice w FX; Additional info: Dislocation fracture TECHNIQUE: Imaging protocol: CT of the Right upper extremity without contrast was performed. Exam focused on the shoulder. Radiation optimization: All CT scans at this facility use at least one of these dose optimization techniques: automated exposure control; mA and/or kV adjustment per patient size (includes targeted exams where dose is matched to clinical indication); or iterative reconstruction. COMPARISON: CR XR shoulder RT min 2V* [id number] 08/11/2021 4:47 PM RADIATION DOSE METRICS: Total DLP (mGy-cm): 1307.07 FINDINGS: Bones/joints: Severely impacted, displaced, and comminuted fracture involving the neck of the proximal right humerus. There are multiple fracture lines extending into the anterior, superior, and medial portions of the humeral head with multiple displaced bone fragments. Right glenohumeral joint effusion/hemarthrosis. Soft tissues: Mild subcutaneous edema/hemorrhage about the lateral right shoulder and anterior upper arm. Continuity of the infraspinatus and supraspinatus tendons cannot be confirmed. Injury to the tendons cannot be excluded. CT/CT shoulder RT wo con* [id number] IMPRESSION: 1. Severely comminuted displaced fracture in the proximal right humerus involving the head and neck.
[2021-08-11 17:41] LABS: Basophils % 0.3 %; Eosinophils # 0.1 10^3/uL (0.0-0.8); Eosinophils % 0.7 %; Hematocrit 41.6 % (37.0-47.0); Hemoglobin 13.7 g/dL (11.5-15.3); Lymphocytes # 1.2 10^3/uL (0.8-4.8); Lymphocytes % 16.7 %; Mean Corpuscular HGB Conc 32.9 g/dL (30.0-36.0); Mean Corpuscular Hemoglobin 30.6 pg (28.0-34.0); Mean Corpuscular Volume 93.1 fl (81-99); Mean Platelet Volume 9.3 fL (7.4-10.4); Monocytes # 0.5 10^3/uL (0.2-0.9); Monocytes % 6.8 %; Neutrophils # 5.21 10^3/uL (1.8-7.7); Neutrophils % 74.8 %; Nucleated Red Blood Cells % 0 %; Platelet Count 202 10^3/cmm (130-400); Red Blood Count 4.47 10^6/uL (4.1-5.3); Red Cell Distribution Width 12.6 % (12.1-15.1)
[2021-08-11 19:42] LABS: Alanine Aminotransferase 16 U/L (0-33); Albumin Level 4.4 g/dL (3.5-5.2); Alkaline Phosphatase 78 IU/L (35-105); Aspartate Amino Transferase 23 U/L (0-32); Blood Urea Nitrogen 17 mg/dL (8-23); Calcium 9.4 mg/dL (8.5-10.5); Carbon Dioxide 26 mmol/L (22-29); Chloride 98 mmol/L (98-107); Globulin 2.9 g/dL (1.3-4.6); Glucose 122 mg/dL (65-115); Osmolality Calculated 283 mOsm/kg (285-295); Sodium 135 mmol/L (136-145); Total Bilirubin 0.3 mg/dL (0.15-1.2); Total Protein 7.3 g/dL (6.6-8.7)
[2021-08-11 19:44] LABS: Anion Gap 14.4 (5-19)
[2021-08-11 19:45] LABS: Potassium 3.4 mmol/L (3.5-5.1)
--- NOTE | 2021-08-11 22:16 | P.HP_ITS ---
Providers/Chief Complaint Admitting Physician: Dale Enriquez Primary Care Provider: Jonathan Wyatt MD Chief Complaint: FALL History of Present Illness 81-year-old female with a past medical history significant for depression, anxiety, hypertension presented to the hospital after she sustained a fall. Patient stated she lost her balance and fell on her right side. Noted excruciating pain in right upper extremity after fall. Denies any lightheadedness or dizziness. Denied chest pain or shortness short of breath. No loss of consciousness. Upon arrival to hospital patient's laboratory workup showed a WBC of 7.0, hemoglobin 13.7, hematocrit 41.6 and a platelet count of 202. Sodium 135, potassium 3.4, chloride 98, bicarb 26, BUN 17 and creatinine of 0.6. LFTs were within normal limits. Right humeral x-ray showed inferior subluxation of humeral head and proximal right humeral fracture. CT of shoulder showed severely comminuted displaced fracture in the proximal right humerus involving the head and neck. Patient's right upper extremity was placed in a sling. Was admitted for pain control. Orthopedic surgery was consulted in ER. Review of Systems Narrative: Comprehensive review of systems found to be negative other than pertinent findings noted in HPI Medications/Allergies Home Medications Medication Instructions Recorded Confirmed Last Taken Type multivitamin (Daily Multi-Vitamin) 1 tab PO DAILY 07/05/20 08/11/21 08/11/21 History omeprazole 20 mg capsule,delayed 20 mg PO DAILY 07/05/20 08/11/21 08/11/21 History release amlodipine 5 mg tablet 7.5 mg PO DAILY 08/11/21 08/11/21 08/11/21 History sertraline 50 mg tablet 50 mg PO DAILY 08/11/21 08/11/21 08/11/21 History trazodone 150 mg tablet 150 mg PO BEDTIME 08/11/21 08/11/21 08/10/21 History venlafaxine 75 mg capsule,extended 75 mg PO DAILY 08/11/21 08/11/21 08/11/21 History release 24 hr Allergies Allergy/AdvReac Type Severity Reaction Status Date / Time codeine Allergy sick to Verified 08/11/21 16:34 stomach PFSH Acute PFSH: Medical History Depression Family history of malignant melanoma History of ovarian cancer Left bundle branch block Ovarian cancer Surgical History H/O total hysterectomy History of hysterectomy History of left knee replacement Family History Mother Stroke Hypertension Social History Smoking and tobacco status: never smoked Alcohol intake: never Marital status: Vitals/I&O/Wt Last Vital Signs Temp 97.6 F 08/11/21 16:35 Pulse 80 08/11/21 18:42 Resp 16 08/11/21 20:20 BP 162/95 08/11/21 18:42 Pulse Ox 97 08/11/21 18:42 Weight last 48 hrs Weight 68.039 kg Physical Exam Narrative: General-alert awake and oriented x3 HEENT-grossly unremarkable CVS-regular rate rhythm, no murmurs Chest-clear to auscultation bilaterally Abdomen-soft nontender nondistended Extremities- Right upper ext pain with movement. sling in place. Data : 08/11/21 17:15 08/11/21 19:18 A&P Assessment and plan (1) Fracture of humerus: Sling Pain control OT consult Ortho consulted in ER Likely non-surgical management Repeat labsi in am Status: Acute Qualifiers: Encounter type: initial encounter Fracture alignment: displaced Fracture morphology: 2-part Fracture type: closed Humerus Location: surgical neck Laterality: right Qualified Code(s): S42.221A - 2-part displaced fracture of surgical neck of right humerus, initial encounter for closed fracture (2) Hypertension: Resume Norvasc 7.5 mg PO Daily Status: Acute (3) Hypokalemia: KCL 20 meq po x 1 Repeat BMP In am Status: Acute (4) DVT prophylaxis: SCDS Heparin Status: Acute Attestations Medical Necessity Statement*: Anticipate > 2 midnight stay in hospital for eval and treatment Time Spent in Patient Care: Greater than 35 minutes Coding Level of Care Code Acute Health Care Social Worker for [facility] Fwseveriano Diagnoses Fracture of humerus S42.221A Encounter type: initial encounter Fracture alignment: displaced Fracture morphology: 2-part Fracture type: closed Humerus Location: surgical neck Laterality: right Hypertension I10 Hypokalemia E87.6 DVT prophylaxis Z29.9
[2021-08-11] MEDS: HYDROcodone-acetaminophen 5-325 mg Tablet 1 TAB PO (23:51)
[2021-08-11] MEDS: heparin 5,000 unit/mL INJ 1 mL 5000 UNIT SUBCUT (23:51)
[2021-08-12] MEDS: cyclobenzaprine 10 mg Tablet PO ×3 (00:38→13:59)
[2021-08-12] MEDS: potassium chloride ER 20 mEq Tablet PO (03:33)
[2021-08-12 04:00] VITALS: BP 146/69; PULSE 81; RESP 16; TEMP 36.8; O2SAT 93
[2021-08-12 05:49] LABS: Basophils % 0.2 %; Hematocrit 36.2 % (37.0-47.0); Hemoglobin 11.9 g/dL (11.5-15.3); Lymphocytes # 1.1 10^3/uL (0.8-4.8); Lymphocytes % 14.1 %; Mean Corpuscular HGB Conc 32.9 g/dL (30.0-36.0); Mean Corpuscular Hemoglobin 30.7 pg (28.0-34.0); Mean Corpuscular Volume 93.5 fl (81-99); Mean Platelet Volume 9.3 fL (7.4-10.4); Monocytes # 0.7 10^3/uL (0.2-0.9); Monocytes % 8.2 %; Neutrophils # 6.21 10^3/uL (1.8-7.7); Neutrophils % 77.3 %; Nucleated Red Blood Cells % 0 %; Platelet Count 209 10^3/cmm (130-400); Red Blood Count 3.87 10^6/uL (4.1-5.3); Red Cell Distribution Width 12.7 % (12.1-15.1)
[2021-08-12 06:13] LABS: Blood Urea Nitrogen 17 mg/dL (8-23); Calcium 9.3 mg/dL (8.5-10.5); Carbon Dioxide 26 mmol/L (22-29); Chloride 99 mmol/L (98-107); Glucose 137 mg/dL (65-115); Osmolality Calculated 284 mOsm/kg (285-295); Sodium 135 mmol/L (136-145)
[2021-08-12 07:25] VITALS: BP 146/82; PULSE 77; RESP 16; TEMP 36.8; O2SAT 95
[2021-08-12] MEDS: heparin 5,000 unit/mL INJ 1 mL 5000 UNIT SUBCUT ×3 (07:57→21:52)
[2021-08-12] MEDS: pantoprazole DR 40 mg Tablet PO (07:58)
[2021-08-12 08:00] VITALS: BP 146/82; PULSE 77; RESP 16; TEMP 36.8
[2021-08-12] MEDS: ondansetron 2 mg/ML SDV 2 mL 4 MG IVP (11:04)
[2021-08-12] MEDS: HYDROcodone-acetaminophen 5-325 mg Tablet 1 TAB PO ×2 (11:04→16:11)
[2021-08-12 11:41] VITALS: BP 134/73; PULSE 84; RESP 18; O2SAT 97
--- NOTE | 2021-08-12 13:10 | PM.CONSULT ---
Providers/Reason For Consult Consulting Physician/Specialty*: Dean Willis MD; orthopedic surgery Reason for Consult*: Right proximal humerus fracture Attending Physician: Elie Hollis MD Primary Care Provider: Jonathan Wyatt MD History of Present Illness History of Present Illness Giovana Castillo is a 81 year old female who tripped over her shoes at home yesterday resulting pain in her right shoulder. She was seen in our emergency room where radiographs and CT revealed a comminuted fracture of the proximal humerus. She was admitted to the medical service for pain control. She has a history of a left reverse total shoulder arthroplasty 3 years ago for a massive rotator cuff tear that was done in [place]. He describes severe right shoulder pain exacerbated with any motion. Review of Systems Neuro: Denies: numbness in extremities (Denies numbness and tingling in the right upper extremity) Medications/Allergies Home Medications Medication Instructions Recorded Confirmed Last Taken Type multivitamin (Daily Multi-Vitamin) 1 tab PO DAILY 07/05/20 08/11/21 08/11/21 History omeprazole 20 mg capsule,delayed 20 mg PO DAILY 07/05/20 08/11/21 08/11/21 History release amlodipine 5 mg tablet 7.5 mg PO DAILY 08/11/21 08/11/21 08/11/21 History sertraline 50 mg tablet 50 mg PO DAILY 08/11/21 08/11/21 08/11/21 History trazodone 150 mg tablet 150 mg PO BEDTIME 08/11/21 08/11/21 08/10/21 History venlafaxine 75 mg capsule,extended 75 mg PO DAILY 08/11/21 08/11/21 08/11/21 History release 24 hr Allergies Allergy/AdvReac Type Severity Reaction Status Date / Time codeine Allergy sick to Verified 08/11/21 16:34 stomach Current Medications Generic Name Dose Route Start Last Admin Trade Name Freq PRN Reason Stop Dose Admin Hydrocodone Bitart/Acetaminophen 1 tab 08/11/21 22:13 08/12/21 11:04 Hydrocodone-Acetaminophen 5-325 Mg Tablet PO 1 tab Q4H PRN Administration MODERATE TO SEVERE PAIN Cyclobenzaprine HCl 10 mg 08/12/21 00:05 08/12/21 07:58 Cyclobenzaprine 10 Mg Tablet PO 10 mg TID PRN Administration MUSCLE SPASMS Heparin Sodium (Porcine) 5,000 unit 08/11/21 22:15 08/12/21 07:57 Heparin 5,000 Unit/Ml Inj 1 Ml SUBCUT 5,000 unit Q8H YESSICA Administration Ondansetron HCl 4 mg 08/11/21 22:13 08/12/21 11:04 Ondansetron 2 Mg/Ml Sdv 2 Ml IVP 4 mg Q8H PRN Administration vomiting, or N/V if npo Pantoprazole Sodium 40 mg 08/12/21 09:00 08/12/21 07:[address] 40 Mg Tablet PO 40 mg DAILY YESSICA Administration PFSH Acute PFSH: Medical History Depression Family history of malignant melanoma History of ovarian cancer Left bundle branch block Ovarian cancer Surgical History H/O total hysterectomy History of hysterectomy History of left knee replacement Family History Mother Stroke Hypertension Social History Smoking and tobacco status: never smoked Alcohol intake: never Marital status: Vitals/I&O/Wt Last Vital Signs Temp 98.2 F 08/12/21 08:00 Pulse 84 08/12/21 11:41 Resp 18 08/12/21 11:41 BP 134/73 08/12/21 11:41 Pulse Ox 97 08/12/21 11:41 08/11/21 08/12/21 08/12/21 22:59 06:59 14:59 Intake Total 200 / 200 120 / 120 Output Total 400 / 400 Balance -200 / -200 120 / 120 Weight last 48 hrs Weight 153 lb Weight 150 lb Physical Exam Narrative: Ms. Schuler is awake alert and oriented to person place and time. She answers questions appropriately and has a good recollection of the events. Her right shoulder is immobilized in a sling She has exquisite pain with any efforts at motion with the right shoulder more so than the elbow. She will fully flex extend her ulnar 4 fingers of the right hand as well as extend oppose and abduct her thumb. She will fire her biceps minimally due to pain and really will not fire her deltoid due to pain Her sensation is intact to light touch Data : 08/12/21 05:20 08/12/21 05:20 Xray Ortho: My impression: The patient has a comminuted fracture of the right proximal humerus with a displaced head and tuberosity fragments. Other CT: My impression: The patient again has a comminuted fracture of the proximal humerus. There certainly is a displaced greater tuberosity and likely lesser tuberosity fragments as well. A&P Assessment and plan (1) Fracture of humerus, proximal, right, closed: The patient has a very comminuted fracture of the proximal humerus involving her right tuberosities. With the degree of osteopenia I do not think surgical stabilization would be successful. I think she has 2 choices of these were discussed with the patient and her . She can try nonoperative treatment. With the tuberosity displacement ultimately I think this would result in very poor function. She is familiar with reverse total shoulder arthroplasty from before. I told her, in my experience, this would be the best choice to deal with a comminuted fracture of this nature. I think this could allow her to salvage some purposeful function in her left arm and would offer her the most reliable improvements in function. She of course is familiar with the procedure before. I told her her outcome may not be what she experienced for cuff tear alone but would be much better than what she could expect with nonoperative care. I discussed risk of bleeding infection. I discussed risk of component loosening and the need for revision. I discussed unlikely anesthetic risk. She understands all these and agrees to proceed. I will contact our [employer] rep and try and get the fracture stems in for surgery on Saturday. 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
--- NOTE | 2021-08-12 13:26 | PC.OT ---
Order received and chart reviewed. Patient undergoing surgery on Saturday per ortho consult. Will hold OT/PT evaluation until after surgery and await new orders from ortho. Sy Díaz, OTR/L
[2021-08-12 16:00] VITALS: BP 124/73; PULSE 82; RESP 16; TEMP 36.6; O2SAT 97
--- NOTE | 2021-08-12 16:54 | P.PN_ITS ---
Subjective Subjective: Patient was seen and examined this morning, has severe pain in right upper extremity, even with slightest movement. Medications: Medication Review Details: Generic Name Dose Route Start Last Admin Trade Name Akhil PRN Reason Stop Dose Admin Hydrocodone Bitart /Acetaminophen 1 tab 08/11/21 22:13 08/12/21 16:11 Hydrocodone-Acet aminophen 5-325 Mg Tablet PO 1 tab Q4H PRN Administration MODERATE TO SEVER E PAIN Cyclobenzaprine HC l 10 mg 08/12/21 00:05 08/12/21 13:59 Cyclobenzaprine 10 Mg Tablet PO 10 mg TID PRN Administration MUSCLE SPASMS Heparin Sodium (Po rcine) 5,000 unit 08/11/21 22:15 08/12/21 16:11 Heparin 5,000 Un it/Ml Inj 1 Ml SUBCUT 5,000 unit Q8H YESSICA Administration Ondansetron HCl 4 mg 08/11/21 22:13 08/12/21 11:04 Ondansetron 2 Mg /Ml Sdv 2 Ml IVP 4 mg Q8H PRN Administration vomiting, or N/V if npo Pantoprazole Sodiu m 40 mg 08/12/21 09:00 08/12/21 07:[address] 40 Mg Tablet PO 40 mg DAILY YESSICA Administration Vitals/I&O/Wt Last Vital Signs Temp 97.8 F 08/12/21 16:00 Pulse 82 08/12/21 16:00 Resp 16 08/12/21 16:00 BP 124/73 08/12/21 16:00 Pulse Ox 97 08/12/21 16:00 08/12/21 08/12/21 08/12/21 06:59 14:59 22:59 Intake Total 200 / 200 600 / 600 Output Total 400 / 400 Balance -200 / -200 600 / 600 Weight last 48 hrs Weight 69.4 kg Weight 68.039 kg Physical Exam Const: COMMON NORMALS: patient oriented x3 HENMT: COMMON NORMALS: normocephalic, atraumatic, hearing grossly normal bilaterally and external ears normal HEAD & SCALP: normocephalic and atraumatic EXTERNAL EAR: Yes external ears normal Eye: COMMON NORMALS: no scleral icterus GENERAL EYE: appearance normal, both eyes and all related structures Chest: COMMONS NORMALS: normal inspection of the chest and normal palpation of entire chest wall CHEST: Yes Symmetrical chest wall rise Resp: COMMON NORMALS: normal respiratory effort, No retractions, No use of accessory muscles and clear to auscultation bilaterally EFFORT & INSPECTION: Yes symmetric chest movement AUSCULTATION: clear to auscultation bilaterally Cardio: COMMON NORMALS: regular rate, regular rhythm, S1 normal heart sound present, S2 normal heart sound present, No gallops present (Cardio), No murmurs present (Cardio), No rub (Cardio) and Peripheral pulses 2+ throughout RATE: regular rate RHYTHM: regular rhythm HEART SOUNDS: S1 normal heart sound present and S2 normal heart sound present PERIPHERAL PULSES: Peripheral pulses 2+ throughout GI: COMMON NORMALS: Normal to inspection, nondistended, normoactive bowel sounds present, Soft to palpation, non-tender, No hepatosplenomegaly present and no masses AUSCULTATION: Yes normoactive bowel sounds PALPATION: Yes Soft to palpation and Yes No hepatosplenomegaly present RECTAL EXAM: deferred Extremity: COMMON NORMALS: no clubbing, cyanosis or edema and no pedal edema NARRATIVE EXTREMITY EXAM: Right upper extremity movement is painful, right upper extremity in sling. Neuro: COMMON NORMALS: patient oriented x3 Data : 08/12/21 05:20 08/12/21 05:20 A&P Assessment and plan (1) Fracture of humerus, proximal, right, closed: Status: Acute (2) Hypertension: Status: Acute (3) Fall: Status: Acute Plan Assessment: #Fracture of humerus: CT shoulder RT wo con: Severely comminuted displaced fracture in the proximal right humerus involving the head and neck. XR humerus RT: ?Comminuted displaced fracture in the proximal right humerus. Inferior subluxation of the humeral head.? A dislocation cannot be entirely ex cluded. XR shoulder RT: Comminuted displaced proximal right humerus fracture: Pain control Continue with sling Orthopedic on board #Hypertension: Blood pressure is well controlled will initiate, Will initiate amlodipine #S/p mechanical fall: #DVT prophylaxis: On heparin Attestations Medical Necessity Statement*: Patient is still in hospital for management of fracture of humerus. Time Spent in Patient Care: Greater than 35 minutes (>than 50% of time spent in counselling and/or direct pt care on unit) . Coding Level of Care Code Acute Cleat Blanker for [facility] Cecilio Diagnoses Fracture of humerus, proximal, right, closed S42.201A Hypertension I10 Fall W19.XXXA
[2021-08-12 20:00] VITALS: BP 154/74; PULSE 85; RESP 18; TEMP 37.1; O2SAT 97
[2021-08-13] VITALS (8 sets, daily range): BP systolic 133–170; BP diastolic 70–80; PULSE 83–97; RESP 16–21; TEMP 36.7–37.6; O2SAT 91–96
[2021-08-13] MEDS: cyclobenzaprine 10 mg Tablet PO ×3 (00:18→20:01)
[2021-08-13] MEDS: HYDROcodone-acetaminophen 5-325 mg Tablet 1 TAB PO ×5 (00:18→20:00)
[2021-08-13 04:09] LABS: Add Urine Microscopic? NO; Charge for UA Resulting for Rev
[2021-08-13 04:23] LABS: Bilirubin Urine Neg (Negative); Blood Urine Neg (Negative); Glucose Urine UA Norm (Normal); Ketones Urine Negative (Negative); Leukocyte Esterase Urine Negative (Negative); Nitrate Urine Negative (Negative); Protein Urine Neg (Negative); Urine Appearance Clear (CLEAR); Urine Color Yellow (Yellow); Urobilinogen Urine Norm (Negative); pH Urine 6 (5-7)
[2021-08-13] MEDS: heparin 5,000 unit/mL INJ 1 mL 5000 UNIT SUBCUT ×3 (05:36→20:57)
[2021-08-13] MEDS: pantoprazole DR 40 mg Tablet PO (07:57)
--- NOTE | 2021-08-13 09:57 | PM.PN ---
Subjective Subjective: Patient was seen and examined this morning, continues to have right upper extremity pain. Medications: Medication Review Details: Generic Name Dose Route Start Last Admin Trade Name Scottq PRN Reason Stop Dose Admin Hydrocodone Bitart /Acetaminophen 1 tab 08/11/21 22:13 08/12/21 16:11 Hydrocodone-Acet aminophen 5-325 Mg Tablet PO 1 tab Q4H PRN Administration MODERATE TO SEVER E PAIN Cyclobenzaprine HC l 10 mg 08/12/21 00:05 08/12/21 13:59 Cyclobenzaprine 10 Mg Tablet PO 10 mg TID PRN Administration MUSCLE SPASMS Heparin Sodium (Po rcine) 5,000 unit 08/11/21 22:15 08/12/21 16:11 Heparin 5,000 Un it/Ml Inj 1 Ml SUBCUT 5,000 unit Q8H YESSICA Administration Ondansetron HCl 4 mg 08/11/21 22:13 08/12/21 11:04 Ondansetron 2 Mg /Ml Sdv 2 Ml IVP 4 mg Q8H PRN Administration vomiting, or N/V if npo Pantoprazole Sodiu m 40 mg 08/12/21 09:00 08/12/21 07:[address] 40 Mg Tablet PO 40 mg DAILY YESSICA Administration Vitals/I&O/Wt Last Vital Signs Temp 98.4 F 08/13/21 08:00 Pulse 83 08/13/21 08:00 Resp 16 08/13/21 08:00 BP 152/78 08/13/21 08:00 Pulse Ox 93 08/13/21 07:52 08/12/21 08/13/21 08/13/21 22:59 06:59 14:59 Intake Total 480 / 1080 Output Total 450 / 450 150 / 600 Balance 30 / 630 -150 / 480 Weight last 48 hrs Weight 69.4 kg Weight 68.039 kg Physical Exam Const: COMMON NORMALS: patient oriented x3 HENMT: COMMON NORMALS: normocephalic, atraumatic, hearing grossly normal bilaterally and external ears normal HEAD & SCALP: normocephalic and atraumatic EXTERNAL EAR: Yes external ears normal Eye: COMMON NORMALS: no scleral icterus GENERAL EYE: appearance normal, both eyes and all related structures Chest: COMMONS NORMALS: normal inspection of the chest and normal palpation of entire chest wall CHEST: Yes Symmetrical chest wall rise Resp: COMMON NORMALS: normal respiratory effort, No retractions, No use of accessory muscles and clear to auscultation bilaterally EFFORT & INSPECTION: Yes symmetric chest movement AUSCULTATION: clear to auscultation bilaterally Cardio: COMMON NORMALS: regular rate, regular rhythm, S1 normal heart sound present, S2 normal heart sound present, No gallops present (Cardio), No murmurs present (Cardio), No rub (Cardio) and Peripheral pulses 2+ throughout RATE: regular rate RHYTHM: regular rhythm HEART SOUNDS: S1 normal heart sound present and S2 normal heart sound present PERIPHERAL PULSES: Peripheral pulses 2+ throughout GI: COMMON NORMALS: Normal to inspection, nondistended, normoactive bowel sounds present, Soft to palpation, non-tender, No hepatosplenomegaly present and no masses AUSCULTATION: Yes normoactive bowel sounds PALPATION: Yes Soft to palpation and Yes No hepatosplenomegaly present RECTAL EXAM: deferred Extremity: COMMON NORMALS: no clubbing, cyanosis or edema and no pedal edema NARRATIVE EXTREMITY EXAM: Right upper extremity movement is painful, right upper extremity in sling. Neuro: COMMON NORMALS: patient oriented x3 Data : 08/12/21 05:20 08/12/21 05:20 A&P Assessment and plan (1) Fracture of humerus, proximal, right, closed: Status: Acute (2) Hypertension: Status: Acute (3) Fall: Status: Acute Plan Assessment: #Fracture of humerus: CT shoulder RT wo con: Severely comminuted displaced fracture in the proximal right humerus involving the head and neck. XR humerus RT: ?Comminuted displaced fracture in the proximal right humerus. Inferior subluxation of the humeral head.? A dislocation cannot be entirely excluded. XR shoulder RT: Comminuted displaced proximal right humerus fracture: Pain control Continue with sling Orthopedic on board: For intervention on Saturday. #Hypertension: Blood pressure is well controlled will initiate, Will initiate amlodipine #S/p mechanical fall: #DVT prophylaxis: On heparin Attestations Medical Necessity Statement*: Patient is still in hospital for management of fracture of humerus. Coding Level of Care Code Acute Draw String Knotter for [facility] Fwd Exam Comprehensive Diagnoses Fracture of humerus, proximal, right, closed S42.201A Hypertension I10 Fall W19.XXXA
[2021-08-14] VITALS (20 sets, daily range): BP systolic 111–170; BP diastolic 69–79; PULSE 78–120; RESP 16–21; TEMP 36.3–38.1; O2SAT 93–100
[2021-08-14] MEDS: HYDROcodone-acetaminophen 5-325 mg Tablet 1 TAB PO ×3 (04:03→16:53)
[2021-08-14] MEDS: heparin 5,000 unit/mL INJ 1 mL 5000 UNIT SUBCUT ×3 (05:04→22:17)
--- NOTE | 2021-08-14 07:20 | PC.NURSE ---
Pt taken for surgery by pre-op staff.
--- NOTE | 2021-08-14 07:34 | P.ANESASSM_ITS ---
Pre-Anesthetic Assessment Height/Weight: Height 1.57 m Weight 69.4 kg Temp Pulse Resp BP Pulse Ox 98.5 F 78 17 125/74 98 08/14/21 07:15 08/14/21 07:15 08/14/21 07:15 08/14/21 07:15 08/14/21 07:15 Preop Diagnosis: Comminuted right proximal humerus fracture Operation Date: 08/14/21 08:50 Proposed Procedures p Total Reverse Shoulder Arthroplasty(Right) - Dean Willis MD Familial anesthetic complications: None Was Beta Krystin taken within 24 hours: N/A Was Clonidine taken within 24 hours: N/A Last intake: Intake Last Liquid Date 08/14/21 Last Liquid Time 00:00 Last Solid Date 08/13/21 Last Solid Time 23:00 Social No alcohol and No tobacco Exam alert, oriented x 3, clear to auscultation bilaterally and regular rate & rhythm Airway Submandibular: within normal limits Cervical ROM: within normal limits Mallampati: Class II Dentition: full CV/HEM Hypertension GI Gastroesophageal Reflux [place] [facility] [place] Anesthetic Plan ASA status: 2 Anesthesia: General and Regional (specify below) (Right interscalene nerve blk) Medications/Allergies Home Medications Medication Instructions Recorded Confirmed Last Taken Type multivitamin (Daily Multi-Vitamin) 1 tab PO DAILY 07/05/20 08/11/21 08/11/21 History omeprazole 20 mg capsule,delayed 20 mg PO DAILY 07/05/20 08/11/21 08/11/21 History release amlodipine 5 mg tablet 7.5 mg PO DAILY 08/11/21 08/11/21 08/11/21 History sertraline 50 mg tablet 50 mg PO DAILY 08/11/21 08/11/21 08/11/21 History trazodone 150 mg tablet 150 mg PO BEDTIME 08/11/21 08/11/21 08/10/21 History venlafaxine 75 mg capsule,extended 75 mg PO DAILY 08/11/21 08/11/21 08/11/21 History release 24 hr Allergies Allergy/AdvReac Type Severity Reaction Status Date / Time codeine Allergy sick to Verified 08/11/21 16:34 stomach Current Medications Generic Name Dose Route Start Last Admin Trade Name Freq PRN Reason Stop Dose Admin Hydrocodone Bitart/Acetaminophen 1 tab 08/11/21 22:13 08/14/21 04:03 Hydrocodone-Acetaminophen 5-325 Mg Tablet PO 1 tab Q4H PRN Administration MODERATE TO SEVERE PAIN Cyclobenzaprine HCl 10 mg 08/12/21 00:05 08/13/21 20:01 Cyclobenzaprine 10 Mg Tablet PO 10 mg TID PRN Administration MUSCLE SPASMS Heparin Sodium (Porcine) 5,000 unit 08/11/21 22:15 08/14/21 05:04 Heparin 5,000 Unit/Ml Inj 1 Ml SUBCUT 5,000 unit Q8H YESSICA Administration Ondansetron HCl 4 mg 08/11/21 22:13 08/12/21 11:04 Ondansetron 2 Mg/Ml Sdv 2 Ml IVP 4 mg Q8H PRN Administration vomiting, or N/V if npo Pantoprazole Sodium 40 mg 08/12/21 09:00 08/13/21 07:[address] 40 Mg Tablet PO 40 mg DAILY YESSICA Administration PFSH Anesthesia Medical History Depression Family history of malignant melanoma History of ovarian cancer Left bundle branch block Ovarian cancer Surgical History H/O total hysterectomy History of hysterectomy History of left knee replacement Family History Mother Stroke Hypertension Social History Smoking and tobacco status: never smoked Alcohol intake: never Marital status: Data Anesthesia : 08/12/21 05:20 08/12/21 05:20 Urine 08/13/21 Range/Units 04:03 Urine Color Yellow (Yellow) Urine Appearance Clear (CLEAR) Urine pH 6 (5-7) Ur Specific [place] 1.010 (1.005-1.030) Urine Protein Neg (Negative) Urine Glucose (UA) Norm (Normal) Urine Ketones Negative (Negative) Urine Nitrate Negative (Negative) Urine Bilirubin Neg (Negative) Ur Leukocyte Esterase Negative (Negative) Cardiac Studies: No Data to Display
[2021-08-14] MEDS: sodium chloride 0.9% 1,000 ML 30 ML IV (07:45)
--- NOTE | 2021-08-14 08:08 | W.PM.OPSUD ---
Surgery/Procedure H&P Update DATE OF PROCEDURE: August 14, 2021 DATE H&P PERFORMED: 08/11/21 PREOP DIAGNOSIS: Comminuted right proximal humerus fracture PLANNED PROCEDURE: Operation Date: 08/14/21 08:50 Proposed Procedures p Total Reverse Shoulder Arthroplasty(Right) - Dean Willis MD
--- NOTE | 2021-08-14 08:21 | P.ANESASSM_ITS ---
Pre-Anesthetic Assessment Height/Weight: Height 1.57 m Weight 69.4 kg Temp Pulse Resp BP Pulse Ox 98 F 94 18 145/77 95 08/14/21 07:55 08/14/21 07:55 08/14/21 07:55 08/14/21 07:55 08/14/21 07:55 Preop Diagnosis: Comminuted right proximal humerus fracture Operation Date: 08/14/21 08:50 Proposed Procedures p Total Reverse Shoulder Arthroplasty(Right) - Dean Willis MD Familial anesthetic complications: None Was Beta Krystin taken within 24 hours: N/A Was Clonidine taken within 24 hours: N/A Last intake: Intake Last Liquid Date 08/13/21 Last Liquid Time 20:00 Last Solid Date 08/13/21 Last Solid Time 18:00 Social No alcohol and No tobacco Exam alert, oriented x 3, clear to auscultation bilaterally and regular rate & rhythm Airway Submandibular: within normal limits Cervical ROM: within normal limits Mallampati: Class II Dentition: full CV/HEM Hypertension GI Gastroesophageal Reflux Disease Neuropsych Anxiety and Depression Anesthetic Plan ASA status: 3 Anesthesia: General and Regional (specify below) (Right interscalen blk) Medications/Allergies Home Medications Medication Instructions Recorded Confirmed Last Taken Type multivitamin (Daily Multi-Vitamin) 1 tab PO DAILY 07/05/20 08/11/21 08/11/21 History omeprazole 20 mg capsule,delayed 20 mg PO DAILY 07/05/20 08/11/21 08/11/21 History release amlodipine 5 mg tablet 7.5 mg PO DAILY 08/11/21 08/11/21 08/11/21 History sertraline 50 mg tablet 50 mg PO DAILY 08/11/21 08/11/21 08/11/21 History trazodone 150 mg tablet 150 mg PO BEDTIME 08/11/21 08/11/21 08/10/21 History venlafaxine 75 mg capsule,extended 75 mg PO DAILY 08/11/21 08/11/21 08/11/21 History release 24 hr Allergies Allergy/AdvReac Type Severity Reaction Status Date / Time codeine Allergy sick to Verified 08/11/21 16:34 stomach Current Medications Generic Name Dose Route Start Last Admin Trade Name Freq PRN Reason Stop Dose Admin Hydrocodone Bitart/Acetaminophen 1 tab 08/11/21 22:13 08/14/21 04:03 Hydrocodone-Acetaminophen 5-325 Mg Tablet PO 1 tab Q4H PRN Administration MODERATE TO SEVERE PAIN Cyclobenzaprine HCl 10 mg 08/12/21 00:05 08/13/21 20:01 Cyclobenzaprine 10 Mg Tablet PO 10 mg TID PRN Administration MUSCLE SPASMS Heparin Sodium (Porcine) 5,000 unit 08/11/21 22:15 08/14/21 05:04 Heparin 5,000 Unit/Ml Inj 1 Ml SUBCUT 5,000 unit Q8H YESSICA Administration Sodium Chloride 1,000 mls @ 30 mls/hr 08/14/21 07:45 08/14/21 07:45 Sodium Chloride 0.9% IV 08/15/21 07:44 30 mls/hr .Q24H YESSICA Administration Ondansetron HCl 4 mg 08/11/21 22:13 08/12/21 11:04 Ondansetron 2 Mg/Ml Sdv 2 Ml IVP 4 mg Q8H PRN Administration vomiting, or N/V if npo Pantoprazole Sodium 40 mg 08/12/21 09:00 08/13/21 07:[address] 40 Mg Tablet PO 40 mg DAILY YESSICA Administration PFSH Anesthesia Medical History Depression Family history of malignant melanoma History of ovarian cancer Left bundle branch block Ovarian cancer Surgical History H/O total hysterectomy History of hysterectomy History of left knee replacement Family History Mother Stroke Hypertension Social History Smoking and tobacco status: never smoked Alcohol intake: never Marital status: Data Anesthesia : 08/12/21 05:20 08/12/21 05:20 Urine 08/13/21 Range/Units 04:03 Urine Color Yellow (Yellow) Urine Appearance Clear (CLEAR) Urine pH 6 (5-7) Ur Specific [place] 1.010 (1.005-1.030) Urine Protein Neg (Negative) Urine Glucose (UA) Norm (Normal) Urine Ketones Negative (Negative) Urine Nitrate Negative (Negative) Urine Bilirubin Neg (Negative) Ur Leukocyte Esterase Negative (Negative) Cardiac Studies: No Data to Display
--- NOTE | 2021-08-14 08:22 | ANES.PROC ---
Anesthesia Procedures Procedure/Date: 08/14/21 Nerve Block ^: Nerve Block 1: Main Anesthesia: general anesthesia Consent: requested by attending/covering physician, from patient, risks and benefits reviewed and patient agrees to proceed Nerve block location: interscalene (right) Anesthesia monitors applied: pulse oximetry, EKG, BP cuff and oxygen Nerve block position: semi sitting Anesthetic Used: ropivicaine 0.5% Amount of anesthesia used (mL): 30 Ultrasound used to: recognize landmarks and visualize and ID brachial plexus Nerve Stimulator Used?: No Interscalene/Femoral BLK: 2 stimuplex 22 g needle used for position and inplane approach Injection: neg aspiration of heme Patient Tolerated Procedure: well Complications: none
[2021-08-14] MEDS: tranexamic acid 1,000 mg/10mL SDV 1000 MG IV (09:25)
--- NOTE | 2021-08-14 09:58 | SUR.OPER ---
attempted to updated family of surgical status
[2021-08-14] MEDS: tranexamic acid 1,000 mg/10mL SDV 2000 MG IRRIGATION (10:58)
--- NOTE | 2021-08-14 11:06 | P.PN_ITS ---
Subjective Subjective: Patient was seen and examined this morning, no acute events overnight, due for surgery today. Medications: Medication Review Details: Generic Name Dose Route Start Last Admin Trade Name Freq PRN Reason Stop Dose Admin Hydrocodone Bitart /Acetaminophen 1 tab 08/11/21 22:13 08/12/21 16:11 Hydrocodone-Acet aminophen 5-325 Mg Tablet PO 1 tab Q4H PRN Administration MODERATE TO SEVER E PAIN Cyclobenzaprine HC l 10 mg 08/12/21 00:05 08/12/21 13:59 Cyclobenzaprine 10 Mg Tablet PO 10 mg TID PRN Administration MUSCLE SPASMS Heparin Sodium (Po rcine) 5,000 unit 08/11/21 22:15 08/12/21 16:11 Heparin 5,000 Un it/Ml Inj 1 Ml SUBCUT 5,000 unit Q8H YESSICA Administration Ondansetron HCl 4 mg 08/11/21 22:13 08/12/21 11:04 Ondansetron 2 Mg /Ml Sdv 2 Ml IVP 4 mg Q8H PRN Administration vomiting, or N/V if npo Pantoprazole Sodiu m 40 mg 08/12/21 09:00 08/12/21 07:[address] 40 Mg Tablet PO 40 mg DAILY YESSICA Administration Vitals/I&O/Wt Last Vital Signs Temp 98 F 08/14/21 07:55 Pulse 94 08/14/21 07:55 Resp 18 08/14/21 07:55 BP 145/77 08/14/21 07:55 Pulse Ox 95 08/14/21 07:55 08/13/21 08/14/21 08/14/21 22:59 06:59 14:59 Intake Total 240 / 960 60 / 60 Output Total 675 / 675 Balance 240 / 960 -675 / 285 60 / 60 Physical Exam Const: COMMON NORMALS: patient oriented x3 HENMT: COMMON NORMALS: normocephalic, atraumatic, hearing grossly normal bilaterally and external ears normal HEAD & SCALP: normocephalic and atraumatic EXTERNAL EAR: Yes external ears normal Eye: COMMON NORMALS: no scleral icterus GENERAL EYE: appearance normal, both eyes and all related structures Chest: COMMONS NORMALS: normal inspection of the chest and normal palpation of entire chest wall CHEST: Yes Symmetrical chest wall rise Resp: COMMON NORMALS: normal respiratory effort, No retractions, No use of accessory muscles and clear to auscultation bilaterally EFFORT & INSPECTION: Yes symmetric chest movement AUSCULTATION: clear to auscultation bilaterally Cardio: COMMON NORMALS: regular rate, regular rhythm, S1 normal heart sound present, S2 normal heart sound present, No gallops present (Cardio), No murmurs present (Cardio), No rub (Cardio) and Peripheral pulses 2+ throughout RATE: regular rate RHYTHM: regular rhythm HEART SOUNDS: S1 normal heart sound present and S2 normal heart sound present PERIPHERAL PULSES: Peripheral pulses 2+ throughout GI: COMMON NORMALS: Normal to inspection, nondistended, normoactive bowel so unds present, Soft to palpation, non-tender, No hepatosplenomegaly present and no masses AUSCULTATION: Yes normoactive bowel sounds PALPATION: Yes Soft to palpation and Yes No hepatosplenomegaly present RECTAL EXAM: deferred Extremity: COMMON NORMALS: no clubbing, cyanosis or edema and no pedal edema NARRATIVE EXTREMITY EXAM: Right upper extremity movement is painful, right upper extremity in sling. Neuro: COMMON NORMALS: patient oriented x3 Urinary Catheter Management: Carpenter: Cath Placed During This Visit: yes Urinary Catheter Date of Insertion: 08/13/21 Urinary Catheter Time of Insertion: 12:00 Data : 08/12/21 05:20 08/12/21 05:20 A&P Assessment and plan (1) Fracture of humerus, proximal, right, closed: Status: Acute (2) Hypertension: Status: Acute (3) Fall: Status: Acute Plan Assessment: #Fracture of humerus: CT shoulder RT wo con: Severely comminuted displaced fracture in the proximal right humerus involving the head and neck. XR humerus RT: ?Comminuted displaced fracture in the proximal right humerus. Inferior subluxation of the humeral head.? A dislocation cannot be entirely excluded. XR shoulder RT: Comminuted displaced proximal right humerus fracture: Pain control Continue with sling Orthopedic on board: For intervention on Saturday.Due for right reverse total shoulder. 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 Fwd Exam Comprehensive Diagnoses Fracture of humerus, proximal, right, closed S42.201A Hypertension I10 Fall W19.XXXA
--- NOTE | 2021-08-14 11:53 | XRR_ITS ---
PROCEDURE INFORMATION: Exam: XR Right Shoulder Exam date and time: 08/14/2021 11:53 AM Age: 81 years old Clinical indication: Device placement; Other: Right reverse total shoulder; Prior surgery; Surgery date: Post-operative (0-2 days) TECHNIQUE: Imaging protocol: XR Right shoulder. Views: 2 or more views. COMPARISON: CT shoulder RT wo con* [id number] 08/11/2021 6:38 PM FINDINGS: Bones/joints: Metallic right shoulder arthroplasty in good position. Otherwise negative examination Soft tissues: Normal. 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
--- NOTE | 2021-08-14 11:54 | P.OP_ITS ---
Operative Report Date of procedure: August 14, 2021 Pre-op diagnosis: Preop Diagnosis Comminuted right proximal humerus fracture Post-op diagnosis: same Procedure done: Right reverse total shoulder Implants: Tornier 1) Aequalis Flex Revive 13x90 stem 2) Aqualeis Flex Revive 13mm 132.5 body 3) Flex Shoulder System reversed tray +0mm 4) Flex Shoulder System 36mm +6mm reversed insert 5) Aequalis PerFORM Reversed 25 standard baseplate 6) Aequalis perForm Reversed standard 36 mm standard glenosphere 7) Glenoid screws: central 40 mm, superior 38mm inferior 42mm Pathology: none sent Surgeon: Dean Willis Anesthesia: General and Nerve Block (Interscalene block) Estimated blood loss (mL): 50 Findings: The patient had a surgical neck fracture with a head splint and displaced greater tuberosity fragment Condition: stable Disposition: PACU Procedure: An intrascalene blocks provided the holding area. The patient was taken to the operating room and given a general anesthesia. They were given 2 g of Ancef. A Licea stand was covered and use to support support the arm A timeout was performed. A 10 cm long incision was made over the deltopectoral groove and dissection carried out with a scalpel blade to the deltopectoral interval. The cephalic vein was identified and retracted laterally. Upon entering the shoulder the displaced humeral head with a central split was identified. A rongeur was used to separate the lesser tuberosity from the anterior head fragment. The tuberosity was mobilized with 2 nonabsorbable #2 braided sutures passed through the bony tendon junction Greater tuberosity was mobilized and fixed with 4 nonabsorbable #2 braided sutures in a similar fashion. With an Perry medium tissue protector was used to retract the pectoralis major and the deltoid. The proximal humerus was then reamed and broached and prepared for a 13 mm ingrowth stem. Utilizing electrocautery the glenoid was exposed circumferentially. The centering guide was used to place the central guidepin at 10 degrees of slope and the glenoid ream down to sclerotic bone. A 25 mm Tornier Aequalis PerFORM REversed glenoid baseplate was then secured in place with a central 40 mm screw, a superior locking 38 mm screw, an inferior locking 42 mm screw. A standard 36 mm Aequalis perFORM ReversedGlenosphere was then placed. A trial reduction with the 36 mm plus a 6 mm reversed insert provided adequate stability. The for #2 braided sutures were then passed through the medial drill hole in the prosthesis. 2 drill holes were made just anterior and posterior to the bicipital groove and a #2 braided suture passed in and out th ose holes exiting anteriorly for later tuberosity reinforcement. The final size 13 humal stem and proximal body was press-fit into place with a 0mm reversed tray. Bone graft was passed around the exposed neck of the prosthesis that was obtained from the humeral head. The Flex Shoulder system 36 mm +6 mm insert was placed and the shoulder reduced with a stable reduction. The superior and inferior tuberosity sutures were then secured anteriorly with the greater tuberosity reduced. The 2 central braided sutures were passed through the lesser tuberosity and secured drawing the lesser tuberosity and reinforcing the greater tuberosity down to the prosthesis. The biceps tendon was retracted superiorly and the sutures tied around the biceps tendon drawing it down to the area of the bicipital groove. The anterior braided suture was then passed through the junction of the lesser tuberosity/subscapularis and greater tuberosity, supraspinatus and secured further drawing the tuberosities down to the stem. The wound was irrigated with a solution of 100 cc of saline with 1 g of tranexamic acid and 80 mg of gentamicin. The deltopectoral interval was closed with 0 Vicryl. The subcutaneous tissues were closed with 2-0 Stratafix. The skin was closed with a running 4-0 Stratafix. Sterile dressings were applied. The patient was placed in a sling extubated and taken to recovery room in stable condition.
[2021-08-14] MEDS: cetylpyridinium Lozenge 1 EACH MUCOUS MEM ×2 (13:11→22:17)
[2021-08-14] MEDS: sodium chloride 0.9% 1,000 ML 80 ML IV (13:12)
--- NOTE | 2021-08-14 14:36 | ANE.PACU2 ---
Inpatient post-anesthesia follow up: Airway intact: Yes Vital signs: Temperature 98.2 F Pulse Rate 105 Respiratory Rate 17 Blood Pressure 146/74 Pulse Oximetry 93 Oxygen Delivery Me thod [ Room Air Current Rate & Del abdulaziz] Oxygen Delivery Me thod Room Air Oxygen Flow Rate 6 Fraction of Inspir ed Oxygen Hydration adequate: Yes Nausea and vomiting: No Pain level: 1 Mental status: Baseline
[2021-08-14] MEDS: cyclobenzaprine 10 mg Tablet PO (16:13)
[2021-08-14] MEDS: ceFAZolin 1,000 MG in sodium chloride 0.9% (plus) 50 ML 100 MG IV (16:15)
--- NOTE | 2021-08-14 16:21 | PC.SOCIAL ---
IMM UPDATED IMM dated and initialed and copy given to patient
[2021-08-14] MEDS: trazodone 150 mg Tablet PO (20:49)
[2021-08-15] VITALS (8 sets, daily range): BP systolic 109–127; BP diastolic 55–70; PULSE 93–108; RESP 18–23; TEMP 36.7–37.7; O2SAT 89–96
[2021-08-15] MEDS: ceFAZolin 1,000 MG in sodium chloride 0.9% (plus) 50 ML 100 MG IV (00:45)
[2021-08-15] MEDS: HYDROcodone-acetaminophen 5-325 mg Tablet 1 TAB PO ×2 (00:46→09:00)
[2021-08-15] MEDS: sodium chloride 0.9% 1,000 ML 80 ML IV (01:54)
[2021-08-15] MEDS: cetylpyridinium Lozenge 1 EACH MUCOUS MEM (01:55)
[2021-08-15] MEDS: heparin 5,000 unit/mL INJ 1 mL 5000 UNIT SUBCUT ×3 (05:57→21:53)
[2021-08-15] MEDS: amlodipine 5 mg Tablet 7.5 MG PO (09:00)
[2021-08-15] MEDS: venlafaxine ER (24HR) 75 mg Capsule PO (09:01)
[2021-08-15] MEDS: sertraline 50 mg Tablet PO (09:01)
[2021-08-15] MEDS: pantoprazole DR 40 mg Tablet PO (09:01)
--- NOTE | 2021-08-15 14:29 | PM.PN ---
Subjective Subjective: Patient was seen and examined this morning, She had an episode of dizziness while she was transferring to chair from bed, need significant assistance. Medications: Medication Review Details: Generic Name Dose Route Start Last Admin Trade Name Akhil PRN Reason Stop Dose Admin Hydrocodone Bitart /Acetaminophen 1 tab 08/11/21 22:13 08/12/21 16:11 Hydrocodone-Acet aminophen 5-325 Mg Tablet PO 1 tab Q4H PRN Administration MODERATE TO SEVER E PAIN Cyclobenzaprine HC l 10 mg 08/12/21 00:05 08/12/21 13:59 Cyclobenzaprine 10 Mg Tablet PO 10 mg TID PRN Administration MUSCLE SPASMS Heparin Sodium (Po rcine) 5,000 unit 08/11/21 22:15 08/12/21 16:11 Heparin 5,000 Un it/Ml Inj 1 Ml SUBCUT 5,000 unit Q8H YESSICA Administration Ondansetron HCl 4 mg 08/11/21 22:13 08/12/21 11:04 Ondansetron 2 Mg /Ml Sdv 2 Ml IVP 4 mg Q8H PRN Administration vomiting, or N/V if npo Pantoprazole Sodiu m 40 mg 08/12/21 09:00 08/12/21 07:[address] 40 Mg Tablet PO 40 mg DAILY YESSICA Administration Vitals/I&O/Wt Last Vital Signs Temp 99.1 F 08/15/21 11:40 Pulse 93 08/15/21 11:40 Resp 18 08/15/21 11:40 BP 109/55 08/15/21 11:40 Pulse Ox 96 08/15/21 11:40 08/14/21 08/15/21 08/15/21 22:59 06:59 14:59 Intake Total 1370 / 2330 1530 / 3860 1320 / 1320 Output Total 850 / 1500 500 / 2000 500 / 500 Balance 520 / 830 1030 / 1860 820 / 820 Physical Exam Const: COMMON NORMALS: patient oriented x3 HENMT: COMMON NORMALS: normocephalic, atraumatic, hearing grossly normal bilaterally and external ears normal HEAD & SCALP: normocephalic and atraumatic EXTERNAL EAR: Yes external ears normal Eye: COMMON NORMALS: no scleral icterus GENERAL EYE: appearance normal, both eyes and all related structures Chest: COMMONS NORMALS: normal inspection of the chest and normal palpation of entire chest wall CHEST: Yes Symmetrical chest wall rise Resp: COMMON NORMALS: normal respiratory effort, No retractions, No use of accessory muscles and clear to auscultation bilaterally EFFORT & INSPECTION: Yes symmetric chest movement AUSCULTATION: clear to auscultation bilaterally Cardio: COMMON NORMALS: regular rate, regular rhythm, S1 normal heart sound present, S2 normal heart sound present, No gallops present (Cardio), No murmurs present (Cardio), No rub (Cardio) and Peripheral pulses 2+ throughout RATE: regular rate RHYTHM: regular rhythm HEART SOUNDS: S1 normal heart sound present and S2 normal heart sound present PERIPHERAL PULSES: Peripheral pulses 2+ throughout GI: COMMON NORMALS: Normal to inspection, nondistended, normoactive bowel sounds present, Soft to palpation, non-tender, No hepatosplenomegaly present and no masses AUSCULTATION: Yes normoactive bowel sounds PALPATION: Yes Soft to palpation and Yes No hepatosplenomegaly present RECTAL EXAM: deferred Extremity: COMMON NORMALS: no clubbing, cyanosis or edema and no pedal edema NARRATIVE EXTREMITY EXAM: Right upper extremity movement is painful, right upper extremity in sling. Neuro: COMMON NORMALS: patient oriented x3 Urinary Catheter Management: Carpenter: Cath Placed During This Visit: yes, but has since been removed by the nurse Reason for Continuing Indwelling Catheter: Decision to DC Catheter Urinary Catheter Date of Insertion: 08/13/21 Urinary Catheter Time of Insertion: 12:00 Date Urinary Catheter Removed: 08/15/21 Time Urinary Catheter Discontinued: 13:00 Data : 08/12/21 05:20 08/12/21 05:20 A&P Assessment and plan (1) Fracture of humerus, proximal, right, closed: Status: Acute (2) Hypertension: Status: Acute (3) Fall: Status: Acute Plan Assessment: #Fracture of humerus: CT shoulder RT wo con: Severely comminuted displaced fracture in the proximal right humerus involving the head and neck. XR humerus RT: ?Comminuted displaced fracture in the proximal right humerus. Inferior subluxation of the humeral head.? A dislocation cannot be entirely excluded. XR shoulder RT: Comminuted displaced proximal right humerus fracture: Pain control Continue with sling Orthopedic on board: S/P right reverse total shoulder. #Hypertension: Blood pressure is well controlled will initiate, Will initiate amlodipine #S/p mechanical fall: #DVT prophylaxis: On heparin Attestations Medical Necessity Statement*: S/P Right reverse total shoulder. Need for postoperative care, need for SNF placement Coding Level of Care Code Acute International Manager for [facility] Fwd Diagnoses Fracture of humerus, proximal, right, closed S42.201A Hypertension I10 Fall W19.XXXA
--- NOTE | 2021-08-15 17:13 | PM.PN ---
Subjective Subjective: Pain much better. Up with therapy Vitals/I&O/Wt Last Vital Signs Temp 99.6 F 08/15/21 15:28 Pulse 100 08/15/21 15:28 Resp 18 08/15/21 15:28 BP 127/68 08/15/21 15:28 Pulse Ox 92 08/15/21 15:28 08/15/21 08/15/21 08/15/21 06:59 14:59 22:59 Intake Total 1530 / 3860 1320 / 1320 Output Total 500 / 2000 500 / 500 Balance 1030 / 1860 820 / 820 Physical Exam Narrative: Right shoulder dressing clean and dry. Less shoulder swelling. Will not fire deltoid yet Urinary Catheter Management: Carpenter: Cath Placed During This Visit: yes, but has since been removed by the nurse Reason for Continuing Indwelling Catheter: Decision to DC Catheter Urinary Catheter Date of Insertion: 08/13/21 Urinary Catheter Time of Insertion: 12:00 Date Urinary Catheter Removed: 08/15/21 Time Urinary Catheter Discontinued: 13:00 Data : 08/12/21 05:20 08/12/21 05:20 A&P Assessment and plan (1) Status post total replacement of right shoulder: Patient with concerns that will be unable to help due to his help. May need SNF. Hopefully home tomorrow. 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
[2021-08-15] MEDS: trazodone 150 mg Tablet PO (20:54)
[2021-08-16] VITALS: BP 101/43; PULSE 96; RESP 16; TEMP 37.7; O2SAT 97
[2021-08-16] MEDS: HYDROcodone-acetaminophen 5-325 mg Tablet 1 TAB PO (00:19)
[2021-08-16] MEDS: sodium chloride 0.9% 1,000 ML 80 ML IV (03:40)
[2021-08-16 04:00] VITALS: BP 121/67; PULSE 88; RESP 16; TEMP 37; O2SAT 92
[2021-08-16] MEDS: heparin 5,000 unit/mL INJ 1 mL 5000 UNIT SUBCUT (05:56)
[2021-08-16 06:00] VITALS: PULSE 96
[2021-08-16 07:51] VITALS: BP 154/70; PULSE 90; RESP 18; TEMP 37.2; O2SAT 92
[2021-08-16 09:16] LABS: Basophils % 0.3 %; Eosinophils % 0.2 %; Hematocrit 28.4 % (37.0-47.0); Hemoglobin 8.9 g/dL (11.5-15.3); Lymphocytes % 10.2 %; Mean Corpuscular HGB Conc 31.3 g/dL (30.0-36.0); Mean Corpuscular Hemoglobin 30.9 pg (28.0-34.0); Mean Corpuscular Volume 98.6 fl (81-99); Mean Platelet Volume 9.5 fL (7.4-10.4); Monocytes # 0.6 10^3/uL (0.2-0.9); Monocytes % 5.6 %; Neutrophils # 8.45 10^3/uL (1.8-7.7); Neutrophils % 83.2 %; Nucleated Red Blood Cells % 0 %; Platelet Count 283 10^3/cmm (130-400); Red Blood Count 2.88 10^6/uL (4.1-5.3); Red Cell Distribution Width 13.1 % (12.1-15.1); White Blood Count 10.2 10^3/uL (4.0-10.0)
[2021-08-16 09:30] LABS: Anion Gap 16.2 (5-19); Blood Urea Nitrogen 11 mg/dL (8-23); Calcium 9.2 mg/dL (8.5-10.5); Carbon Dioxide 23 mmol/L (22-29); Chloride 99 mmol/L (98-107); Glucose 178 mg/dL (65-115); Osmolality Calculated 284 mOsm/kg (285-295); Potassium 3.2 mmol/L (3.5-5.1); Sodium 135 mmol/L (136-145)
[2021-08-16] MEDS: venlafaxine ER (24HR) 75 mg Capsule PO (09:50)
[2021-08-16] MEDS: acetaminophen 325 mg Tablet 650 MG PO (09:50)
[2021-08-16] MEDS: pantoprazole DR 40 mg Tablet PO (09:50)
[2021-08-16] MEDS: amlodipine 5 mg Tablet 7.5 MG PO (09:50)
[2021-08-16] MEDS: sertraline 50 mg Tablet PO (09:50)
--- NOTE | 2021-08-16 10:07 | P.DS_ITS ---
Discharge Providers Date of Admission: 08/11/21 21:04 Date of Discharge: August 16, 2021 Attending Provider at Admission: Dale Enriquez Attending Provider at Discharge: Elie Hollis MD Primary Care Provider: Jonathan Wyatt MD Diagnoses at Discharge Discharge Diagnosis (1) Status post total replacement of right shoulder: Status: Acute Reason for Visit Reason for Visit: FALL Hospital Course Hospital Course 81-year-old female with a past medical history significant for depression, anxiety, hypertension presented to the hospital after she sustained a fall.? Patient stated she lost her balance and fell on her right side.? Noted excruciating pain in right upper extremity after fall.? Denies any lightheadedness or dizziness.? Denied chest pain or shortness short of breath.? No loss of consciousness.? Upon arrival to hospital patient's laboratory workup showed a WBC of 7.0, hemoglobin 13.7, hematocrit 41.6 and a platelet count of 202.? Sodium 135, potassium 3.4, chloride 98, bicarb 26, BUN 17 and creatinine of 0.6.? LFTs were within normal limits.? Right humeral x-ray showed inferior subluxation of humeral head and proximal right humeral fracture.? CT of shoulder showed severely comminuted displaced fracture in the proximal right humerus involving the head and neck.? Patient's right upper extremity was placed in a sling.? Was admitted for pain control. Orthopedic was on board: S/p Right reverse total shoulder. Post procedure patient did well she was discharged home on home health, she will continue to follow orthopedic as an outpatient. Physical Exam Const: COMMON NORMALS: patient oriented x3 HENMT: COMMON NORMALS: normocephalic, atraumatic, hearing grossly normal bilaterally and external ears normal HEAD & SCALP: normocephalic and atraumatic EXTERNAL EAR: Yes external ears normal Eye: COMMON NORMALS: no scleral icterus GENERAL EYE: appearance normal, both eyes and all related structures Chest: COMMONS NORMALS: normal inspection of the chest and normal palpation of entire chest wall CHEST: Yes Symmetrical chest wall rise Resp: COMMON NORMALS: normal respiratory effort, No retractions, No use of accessory muscles and clear to auscultation bilaterally EFFORT & INSPECTION: Yes symmetric chest movement AUSCULTATION: clear to auscultation bilaterally Cardio: COMMON NORMALS: regular rate, regular rhythm, S1 normal heart sound present, S2 normal heart sound present, No gallops present (Cardio), No murmurs present (Cardio), No rub (Cardio) and Peripheral pulses 2+ throughout RATE: regular rate RHYTHM: regular rhythm HEART SOUNDS: S1 normal heart sound present and S2 normal heart sound present PERIPHERAL PULSES: Peripheral pulses 2+ throughout GI: COMMON NORMALS: Normal to inspection, nondistended, normoactive bowel sounds present, Soft to palpation, non-tender, No hepatosplenomegaly present and no masses AUSCULTATION: Yes normoactive bowel sounds PALPATION: Yes Soft to palpation and Yes No hepatosplenomegaly present RECTAL EXAM: deferred Extremity: COMMON NORMALS: no clubbing, cyanosis or edema and no pedal edema NARRATIVE EXTREMITY EXAM: Right upper extremity in sling. Neuro: COMMON NORMALS: patient oriented x3 Urinary Catheter Management: Carpenter: Cath Placed During This Visit: yes, but has since been removed by the nurse Reason for Continuing Indwelling Catheter: Decision to DC Catheter Urinary Catheter Date of Insertion: 08/13/21 Urinary Catheter Time of Insertion: 12:00 Date Urinary Catheter Removed: 08/15/21 Time Urinary Catheter Discontinued: 13:00 Discharge Data Studies Completed and Pending Completed Studies During Hospitalization Category Date Time Status CT shoulder RT wo con* [id number] Stat Cat Scan 08/11/21 17:25 [place] [id number] Stat Exams 08/11/21 16:41 Completed XR shoulder RT min 2V* [id number] Routine Exams 08/14/21 11:53 Completed XR shoulder RT min 2V* [id number] Stat Exams 08/11/21 16:40 Completed Radiology Impressions Humerus X-Ray 08/11/21 16:41 IMPRESSION: 1. Comminuted displaced fracture in the proximal right humerus. 2. Inferior subluxation of the humeral head. A dislocation cannot be entirely excluded. Consider follow-up with CT imaging. ADDENDUM: 08/11/21 1706 This study is correlated to the right shoulder images on 08/11/2021. There is no evidence for shoulder dislocation. Inferior subluxation may relate to a hemarthrosis. Shoulder CT 08/11/21 17:25 IMPRESSION: 1. Severely comminuted displaced fracture in the proximal right humerus involving the head and neck. Shoulder X-Ray 08/14/21 11:53 IMPRESSION: Metallic right shoulder arthroplasty in good position. Laboratory Results WBC 10.2 10^3/uL (4.0-10.0) H 08/16/21 09:03 RBC 2.88 10^6/uL (4.1-5.3) L 08/16/21 09:03 Hgb 8.9 g/dL (11.5-15.3) L 08/16/21 09:03 Hct 28.4 % (37.0-47.0) L 08/16/21 09:03 MCV 98.6 fl (81-99) 08/16/21 09:03 MCH 30.9 pg (28.0-34.0) 08/16/21 09:03 MCHC 31.3 g/dL (30.0-36.0) 08/16/21 09:03 RDW 13.1 % (12.1-15.1) 08/16/21 09:03 Plt Count 283 10^3/cmm (130-400) 08/16/21 09:03 MPV 9.5 fL (7.4-10.4) 08/16/21 09:03 Neut % (Auto) 83.2 % 08/16/21 09:03 Lymph % (Auto) 10.2 % 08/16/21 09:03 Crosby % (Auto) 5.6 % 08/16/21 09:03 Eos % (Auto) 0.2 % 08/16/21 09:03 Baso % (Auto) 0.3 % 08/16/21 09:03 Neut # (Auto) 8.45 10^3/uL (1.8-7.7) H 08/16/21 09:03 Lymph # (Auto) 1.0 10^3/uL (0.8-4.8) 08/16/21 09:03 Crosby # (Auto) 0.6 10^3/uL (0.2-0.9) 08/16/21 09:03 Eos # (Auto) 0.0 10^3/uL (0.0-0.8) 08/16/21 09:03 Baso # (Auto) 0.0 10^3/uL (0.0-0.1) 08/16/21 09:03 Nucleated RBC % (auto) 0 % 08/16/21 09:03 Nucleated RBCs # 0.0 /100WBC 08/16/21 09:03 Sodium 135 mmol/L (136-145) L 08/16/21 09:03 Potassium 3.2 mmol/L (3.5-5.1) L 08/16/21 09:03 Chloride 99 mmol/L (98-107) 08/16/21 09:03 Carbon Dioxide 23 mmol/L (22-29) 08/16/21 09:03 Anion Gap 16.2 (5-19) 08/16/21 09:03 BUN 11 mg/dL (8-23) 08/16/21 09:03 Creatinine 0.6 mg/dL (0.5-0.9) 08/16/21 09:03 GFR Calculation Not Reportable 08/16/21 09:03 Glucose 178 mg/dL (65-115) H 08/16/21 09:03 Calculated Osmolality 284 mOsm/kg (285-295) L 08/16/21 09:03 Calcium 9.2 mg/dL (8.5-10.5) 08/16/21 09:03 Total Bilirubin 0.3 mg/dL (0.15-1.2) 08/11/21 19:18 AST 23 U/L (0-32) 08/11/21 19:18 ALT 16 U/L (0-33) 08/11/21 19:18 Alkaline Phosphatase 78 IU/L (35-105) 08/11/21 19:18 Total Protein 7.3 g/dL (6.6-8.7) 08/11/21 19:18 Albumin 4.4 g/dL (3.5-5.2) 08/11/21 19:18 Globulin 2.9 g/dL (1.3-4.6) 08/11/21 19:18 Urine Color Yellow (Yellow) 08/13/21 04:03 Urine Appearance Clear (CLEAR) 08/13/21 04:03 Urine pH 6 (5-7) 08/13/21 04:03 Ur Specific Welcome 1.010 (1.005-1.030) 08/13/21 04:03 Urine Protein Neg (Negative) 08/13/21 04:03 Urine Glucose (UA) Norm (Normal) 08/13/21 04:03 Urine Ketones Negative (Negative) 08/13/21 04:03 Urine Blood Neg (Negative) 08/13/21 04:03 Urine Nitrate Negative (Negative) 08/13/21 04:03 Urine Bilirubin Neg (Negative) 08/13/21 04:03 Urine Urobilinogen Norm mg/dL (Negative) 08/13/21 04:03 Ur Leukocyte Esterase Negative (Negative) 08/13/21 04:03 Vitals Last Vital Signs Temp 98.9 F 08/16/21 07:51 Pulse 90 08/16/21 07:51 Resp 18 08/16/21 07:51 BP 154/70 08/16/21 07:51 Pulse Ox 92 08/16/21 07:51 Discharge Plan Discharge Patient Disposition: Home Condition: Fair Prescriptions: New hydrocodone-acetaminophen 5-325 mg Tablet 1 tab PO Q4H PRN (Reason: Moderate To Severe Pain) 10 Days Qty: 30 0RF Continued omeprazole 20 mg capsule,delayed release(DR/EC) 20 mg PO DAILY 0RF multivitamin [Daily Multi-Vitamin] Tablet 1 tab PO DAILY 0RF venlafaxine 75 mg capsule,extended release 24hr 75 mg PO DAILY 0RF amlodipine 5 mg tablet 7.5 mg PO DAILY 0RF trazodone 150 mg tablet 150 mg PO BEDTIME 0RF sertraline 50 mg tablet 50 mg PO DAILY 0RF Discharge Orders: Discharge Order (Routine); Ordered 08/16/21 Ordered By: Elie Hollis Other Ambulatory Orders: DME: Cane/ Crutches (Order) Location: None Selected Ordered By: Elie Hollis Referrals: [facility] [Outside] Jonathan Wyatt MD [Primary Care Provider] - 09/18/21 10:00 am Dean Willis MD [Physician] - 09/06/21 8:45 am (3 weeks) Discharge Diet: Regular Discharge Activity: Increase activity as tolerated Patient Instructions: Hydrocodone/Acetaminophen (By mouth), Shoulder Arthroplasty (GEN), Opioid Safety Discharge Attestations Time Spent in Discharge Care*: greater than 30 min Specific Discharge Activities: educating patient, educating and/or supporting family/caregiver, discussing with pcp/other providers, discussing with case briefer/social workers/dc planners, documenting/other paperwork and evaluating patient/reviewing data Quality Metrics Clinical Quality Measures [ No reported AMI, CVA or VTE this stay] Coding Level of Care Code Acute Chg FW DC note Exam Comprehensive Diagnoses Status post total replacement of right shoulder Z96.611
--- NOTE | 2021-08-16 10:20 | PC.SOCIAL ---
IMM Update Pg. 2 of IMM updated and reviewed with patient, who verbalized understanding. Copy provided.
[2021-08-16 11:48] VITALS: BP 126/63; PULSE 101; RESP 18; TEMP 36.8; O2SAT 93
== END 2021-08-16 12:18 | disposition home health service (06) | DRG 483 ==
LOC: ER 21:19 → MEDSURG 21:30
PROVIDERS: Family Medicine; Orthopaedic Surgery; Admitting Provider Hospitalist; Emergency Provider Emergency Medicine; PCP Family Medicine; Visit Provider Internal Medicine
PROC: 0RRJ00Z Replacement of Right Shoulder Joint with Reverse Ball and Socket Synthetic Substitute, Open Approach (ICD-10-PCS; CPT 23472; principal; 2021-08-14 08:30)
DX: S42.221A 2-part displaced fracture of surgical neck of right humerus, initial encounter for closed fracture (principal); W19.XXXA Unspecified fall, initial encounter; F41.8 Other specified anxiety disorders; Z85.820 Personal history of malignant melanoma of skin; Z85.43 Personal history of malignant neoplasm of ovary; Z96.652 Presence of left artificial knee joint; Z96.612 Presence of left artificial shoulder joint; I10 Essential (primary) hypertension; E87.6 Hypokalemia
CPT/HCPCS: 36415; 51702; 73030; 73060; 73200; 80048; 80053; 81003; 85025; 96372; 96374; 96375; 96376; 97110; 97116; 97161; 97167; 97530; 97535; 99285; C1713; C1776 ×2; J0690; J1580; J1644; J2270; J2405; J2704; J2710; J2795; J3010; J3490; J7030

== ENCOUNTER 2021-09-14 14:16 | Outpatient (RCR) | payer MEDICARE, SELFPAY | END 2021-09-14 23:59 | disposition home or self-care (01) | LOC: SPT 14:16 | PROVIDERS: PCP Family Medicine; Referring Provider Orthopaedic Surgery; Visit Provider Orthopaedic Surgery | DX: Z47.89 Encounter for other orthopedic aftercare (principal) | CPT/HCPCS: 97162 ==

== ENCOUNTER 2021-09-15 06:00 | Outpatient (RCR) | payer MEDICARE, SELFPAY | END 2021-10-14 23:59 | disposition home or self-care (01) | LOC: SPT 06:00 | PROVIDERS: PCP Family Medicine; Referring Provider Orthopaedic Surgery; Visit Provider Orthopaedic Surgery | DX: Z47.89 Encounter for other orthopedic aftercare (principal); R53.1 Weakness; R26.89 Other abnormalities of gait and mobility | CPT/HCPCS: 97110 ==

== ENCOUNTER 2021-10-11 12:31 | Outpatient (CLI) | payer MEDICARE, SELFPAY ==
--- NOTE | 2021-10-11 12:48 | XR_ITS ---
WS: [id number] DEXA (DUAL ENERGY X-RAY ABSORPTIOMETRY) Bone mineral density was performed using a [employer] machine. HISTORY: HX OF FRAGILITY FX COMPARISON: 11/07/2016 Lumbar spine BMD (L1-L4): 0.984 g/cm2 T score: -1.6 Z score: 0.0 Total hip BMD: Left: 0.843 g/cm2. T score: -1.3 Z score: 0.6 Right: 0.833 g/cm2. T score: -1.4 Z score: 0.5 10 year probability of a major osteoporotic fracture is 25%. Compared to the prior study from 11/07/2016. Lumbar spine bone mineral density has decrease by 4.7%. Bilateral hips bone mineral density has decrease by 2.6%. XR/XR DEXA axial skeleton* [id number] IMPRESSION: OSTEOPENIA based upon the WHO classification for females. Significant decrease in bone mineral density within the hips and lumbar spine s jeanna the prior study.
== END 2021-10-11 12:32 | disposition home or self-care (01) ==
PROVIDERS: PCP Family Medicine; Visit Provider Family Medicine
DX: Z87.310 Personal history of (healed) osteoporosis fracture (principal)
CPT/HCPCS: 72100; 77080

== ENCOUNTER → 2021-10-17 13:29 | Outpatient (BNVA) | payer MEDICARE, SELFPAY | PROVIDERS: PCP Family Medicine; Visit Provider Orthopaedic Surgery | DX: Z96.611 Presence of right artificial shoulder joint (principal) | CPT/HCPCS: 73030 ==

== ENCOUNTER 2021-10-19 12:25 | Outpatient (CLI) | payer MEDICARE, SELFPAY ==
--- NOTE | 2021-10-19 12:36 | CT_ITS ---
WS: [id number] CT ABDOMEN PELVIS TECHNIQUE: Contrast-enhanced CT of the abdomen and pelvis with coronal and sagittal reformatted image s. CLINICAL INFORMATION: RLQ ABD PAIN COMPARISON: None. DLP: 999.[address] scans at [facility] use at least one of these dose optimization techniques: automated e xposure control; mA and/or kV adjustment per patient size (includes targeted exams where dose is matc hed to clinical indication); or iterative reconstruction. FINDINGS: Diffuse fatty infiltration of the liver. Portal vein and splenic vein. Incidental hepatic cysts. Air- fluid level in the stomach. Small esophageal hiatal hernia. Dependent atelectasis in the lung bases. Normal gallbladder. Adrenal glands are normal. Normal renal parenchymal enhancement. Prominent RIGHT extra renal pelvis i s unchanged. Urine distended bladder. Normal spleen. Fatty atrophy of the pancreas. Normal caliber ab dominal aorta. Celiac and SMA are patent. Mild to moderate stenosis at the celiac and SMA origins. No periaortic lymphadenopathy. Constipation involving the RIGHT colon and cecum. No free fluid in the abdomen or pelvis. Slight anterolisthesis L3 on L4. Compression superior endplate L1 with sclerosis. Disc space narrowing worse L5-S1 with vacuum disc phenomenon. CT/CT abdomen pelvis w con* [id number] IMPRESSION: 1. RIGHT colon constipation. Distention of the cecum in the RIGHT lower quadra nt. 2. Urine distended bladder. 3. Distended stomach with air-fluid level. 4. Prior hysterectomy. 5. Mild diffuse fatty infiltration of the liver. 6. Small esophageal hiatal hernia. 7. Mild compression superior endplate L1 is new since 2012. Age indeterminate. Recommend correlation for low back pain. No significant retropulsion.
[2021-10-19] MEDS: iohexol 350 mg/mL 100 mL Btl IV (13:18)
== END 2021-10-19 12:26 | disposition home or self-care (01) ==
LOC: RAD 12:29
PROVIDERS: PCP Family Medicine; Visit Provider Family Medicine
DX: R10.31 Right lower quadrant pain (principal); K59.00 Constipation, unspecified
CPT/HCPCS: 74177

== ENCOUNTER → 2021-10-24 11:04 | Outpatient (BNVA) | payer MEDICARE, SELFPAY | PROVIDERS: PCP Family Medicine; Visit Provider Physician Assistant | DX: M48.062 Spinal stenosis, lumbar region with neurogenic claudication (principal); M54.16 Radiculopathy, lumbar region; M47.816 Spondylosis without myelopathy or radiculopathy, lumbar region | CPT/HCPCS: 72070; 72110; 99213; 99999 ==

== ENCOUNTER → 2021-10-26 13:48 | Outpatient (BNVA) | payer MEDICARE, SELFPAY | PROVIDERS: PCP Family Medicine; Visit Provider Internal Medicine | DX: I10 Essential (primary) hypertension (principal); I44.7 Left bundle-branch block, unspecified | CPT/HCPCS: 99213; 99214 ==

== ENCOUNTER 2021-11-15 12:37 | Outpatient (CLI) | payer MEDICARE, SELFPAY ==
--- NOTE | 2021-11-15 13:07 | MM_ITS ---
WS: [id number] BILATERAL 3D TOMOSYNTHESIS DIGITAL SCREENING MAMMOGRAPHY WITH CAD CLINICAL INFORMATION: SCREENING HISTORY: Screening mammogram. No current complaints. COMPARISON: July 25, 2020 TECHNIQUE: Bilateral CC and MLO views. FINDINGS: The breasts are composed of heterogeneous fibroglandular density tissue, which can limit the detectio n of small underlying mass lesions. Stable 4 mm ovoid nodule or intramammary lymph node lower outer R IGHT breast measuring 4 mm. Stable dense breast tissue subareolar breasts bilaterally. No suspicious mass, asymmetry, calcifications, or architectural distortion. No evidence of malignancy. Vascular dilma cification. MM/[place] [id number] IMPRESSION: BI-RADS: 2-Benign FOLLOW UP: 1 Year Follow-up Recommend return to annual screening mammography.
== END 2021-11-15 12:38 | disposition home or self-care (01) ==
LOC: RAD 12:39
PROVIDERS: PCP Family Medicine; Visit Provider Family Medicine
DX: Z12.31 Encounter for screening mammogram for malignant neoplasm of breast (principal); N63.13 Unspecified lump in the right breast, lower outer quadrant
CPT/HCPCS: 77063; 77067

== ENCOUNTER → 2022-05-09 11:38 | Outpatient (BNVA) | payer MEDICARE, SELFPAY | PROVIDERS: PCP Family Medicine; Visit Provider Internal Medicine | DX: I10 Essential (primary) hypertension (principal); I44.7 Left bundle-branch block, unspecified | CPT/HCPCS: 99214 ==

== ENCOUNTER → 2022-11-08 14:55 | Outpatient (BNVA) | payer MEDICARE, SELFPAY | PROVIDERS: PCP Family Medicine; Visit Provider Internal Medicine | DX: I10 Essential (primary) hypertension (principal); I44.7 Left bundle-branch block, unspecified | CPT/HCPCS: 99214 ==

== ENCOUNTER 2022-11-16 13:19 | Outpatient (CLI) | payer MEDICARE, SELFPAY ==
--- NOTE | 2022-11-16 13:35 | MM_ITS ---
WS: [id number] BILATERAL 3D TOMOSYNTHESIS DIGITAL SCREENING MAMMOGRAPHY WITH CAD CLINICAL INFORMATION: SCREENING HISTORY: Screening mammogram. No current complaints. COMPARISON: 2021 TECHNIQUE: Bilateral CC and MLO views. FINDINGS: Scattered fibroglandular densities bilaterally. No suspicious focal mass, asymmetry, calcifications, or architectural distortion. No evidence of malignancy. Vascular calcification. MM/[place] [id number] IMPRESSION: BI-RADS: 2-Benign FOLLOW UP: 1 Year Follow-up Recommend return to annual screening mammography.
== END 2022-11-16 13:20 | disposition home or self-care (01) ==
PROVIDERS: PCP Family Medicine; Visit Provider Family Medicine
DX: Z12.31 Encounter for screening mammogram for malignant neoplasm of breast (principal)
CPT/HCPCS: 77063; 77067

== ENCOUNTER → 2022-11-20 14:11 | Outpatient (BNVA) | payer MEDICARE, SELFPAY | PROVIDERS: PCP Family Medicine; Visit Provider Dermatology | DX: D18.01 Hemangioma of skin and subcutaneous tissue (principal); D36.15 Benign neoplasm of peripheral nerves and autonomic nervous system of abdomen; L82.1 Other seborrheic keratosis; L81.4 Other melanin hyperpigmentation; L72.8 Other follicular cysts of the skin and subcutaneous tissue; L57.0 Actinic keratosis; Z85.828 Personal history of other malignant neoplasm of skin | CPT/HCPCS: 17000; 99213 ==

== ENCOUNTER → 2022-12-11 10:53 | Outpatient (BNVA) | payer MEDICARE, SELFPAY | PROVIDERS: PCP Family Medicine; Visit Provider Orthopaedic Surgery | DX: M48.062 Spinal stenosis, lumbar region with neurogenic claudication (principal) | CPT/HCPCS: 99214 ==

== ENCOUNTER 2023-01-23 13:20 | Outpatient (CLI) | payer MEDICARE, SELFPAY ==
--- NOTE | 2023-01-23 13:39 | MR_ITS ---
WS: [id number] MRI LUMBAR SPINE WITH AND WITHOUT CONTRAST. HISTORY: LUMBAR DDD/FAILED BACK SYNDROME LUMBAR COMPARISON: 02/11/2020 TECHNIQUE: Sagittal and axial multisequence imaging is submitted. Post contrast imaging 15 mL IV Mult iHance. Marked increase in thoracic kyphosis similar to the prior study. Grade 1 anterolisthesis of L3 by 4.5 mm. Similar to the prior study. Mild curvature lumbar spine with increase in the lumbar lordosis. Ve ry mild loss of vertebral body height of L1 greatest to the left of the midline. Disc spaces are all narrowed. No marrow edema or fracture. Conus terminates normally at L1. T12-L1: Facet disease with mild bilateral foraminal stenosis. No high-grade stenosis. L1-L2: Mild annular disc bulging with bilateral facet and ligamentum flavum arthritis. Mild bilateral foraminal stenosis. L2-L3: Mild annular disc bulging with osteophytic ridging. Mild central, bilateral subarticular reces s and foraminal stenosis. Slightly greater subarticular recess encroachment as compared to the prior study. Correlate with traversing L3 nerve root symptoms. L3-L4: Severe central, bilateral subarticular recess with moderate foraminal stenosis. Marked right l igamentum flavum hypertrophy. Complete effacement of CSF surrounding the cord. L4-L5: Mild annular disc bulge with moderate left paracentral disc protrusion contacting and deformin g the left lateral thecal sac. Mild posterior displacement of the traversing left L5 nerve root. Mild central with mild bilateral subarticular recess stenosis. Left hemilaminectomy defect. L5-S1: Mild annular disc bulging with a small central to right paracentral disc protrusion. Disc prot rusion contacts the nerve roots, greatest on the right. Mild central and subarticular recess stenosis . Moderate left and mild right foraminal stenosis to the prior examination. IMPRESSION: 1. L3-4: Severe central, bilateral subarticular recess and moderate foraminal stenosis due to combina tion of degenerative changes including grade 1 anterolisthesis of L3. Mild progression since the prio r exam. 2. Moderate left paracentral disc protrusion at L4-5. Mild central with mild bilateral subarticular r ecess stenosis at L4-5. Mild disc contact on the traversing left L5 nerve root. 3. T12-L1 and L1-2: Mild foraminal stenosis. 4. L2-3: Mild central, bilateral subarticular recess and foraminal stenosis. Mild progression of suba rticular recess encroachment. 5. Small central to right paracentral disc protrusion at L5-S1. Mild disc contact on the S1 nerve bismark ts, right greater than left. Mild central and subarticular recess stenosis at L5-S1. Moderate left fo raminal stenosis.
[2023-01-23] MEDS: gadobenate dimeglumine 20 mL vial IV (15:11)
== END 2023-01-23 13:21 | disposition home or self-care (01) ==
PROVIDERS: PCP Family Medicine; Visit Provider Nurse Practitioner Family
DX: M51.36 Other intervertebral disc degeneration, lumbar region (principal); M48.07 Spinal stenosis, lumbosacral region; M51.26 Other intervertebral disc displacement, lumbar region; M48.05 Spinal stenosis, thoracolumbar region
CPT/HCPCS: 72158; A9577

== ENCOUNTER → 2023-05-30 12:34 | Outpatient (BNVA) | payer MEDICARE, SELFPAY | PROVIDERS: PCP Family Medicine; Visit Provider Internal Medicine Cardiovascular Disease | DX: I44.7 Left bundle-branch block, unspecified (principal) | CPT/HCPCS: 99213 ==

== ENCOUNTER 2023-10-14 17:07 | Emergency (ER) | payer MEDICARE, SELFPAY ==
[2023-10-14 17:30] VITALS: BP 166/79; PULSE 90; RESP 18; TEMP 36.8; O2SAT 97
[2023-10-14 17:58] VITALS: BP 160/82; PULSE 81; O2SAT 98
--- NOTE | 2023-10-14 18:07 | ED_ITS ---
HPI - Back Pain/Injury General: Chief Complaint: Back Pain/Injury Stated Complaint: right side shoulder pain Time Seen by Provider: 10/14/23 17:56 History of Present Illness: Patient presents to the ER with worsening of her chronic back pain. Patient started already seeing multiple pain specialist and interventional specialist. She has oxycodone at home to take as needed. Patient saw her PCP on Saturday where she got multiple shots in her back that helped for a few hours but now is only getting worse. Patient is already taken her oxycodone before coming here. It is starting to help however patient would still like shot in her back. Review of Systems General: Reports: 10 or more systems reviewed and unremarkable except in HPI and below PFSH ED PFSH: Medical History History of nonmelanoma skin cancer Fall Fracture of humerus, proximal, right, closed DVT prophylaxis Hypokalemia Fracture of humerus Family history of malignant melanoma Ovarian cancer History of ovarian cancer Left bundle branch block Depression Hypertension Surgical History Status post total replacement of right shoulder History of hysterectomy History of left knee replacement H/O total hysterectomy Family History Mother Stroke Hypertension Other Breast cancer Colon cancer Diabetes Heart disease Ovarian cancer Thyroid disease Uterine cancer Social History Substance/Drug Use: never Physical Exam Const: COMMON NORMALS: no acute distress, average body habitus, patient oriented x3, no limitations, healthy appearing, alert and well nourished HENMT: COMMON NORMALS: normocephalic, atraumatic, hearing grossly normal bilaterally, external ears normal, Normal external nose present, moist oral mucous membranes and oropharynx normal HEAD & SCALP: normocephalic and atraumatic NOSE: Normal external nose present EXTERNAL EAR: Yes external ears normal Neck/C-Spine: COMMON NORMALS: no JVD Chest: COMMONS NORMALS: normal inspection of the chest and normal palpation of entire chest wall Resp: COMMON NORMALS: normal respiratory effort, No retractions, No use of accessory muscles and clear to auscultation bilaterally AUSCULTATION: clear to auscultation bilaterally Cardio: COMMON NORMALS: no JVD, regular rate, regular rhythm, S1 normal heart sound present, S2 normal heart sound present, No gallops present (Cardio), No clicks present (Cardio), No murmurs present (Cardio) and No rub (Cardio) RATE: regular rate RHYTHM: regular rhythm HEART SOUNDS: S1 normal heart sound present and S2 normal heart sound present GI: COMMON NORMALS: Normal to inspection, nondistended, normoactive bowel sounds present, Soft to palpation, non-tender, No hepatosplenomegaly present and no masses PALPATION: Yes Soft to palpation and Yes No hepatosplenomegaly present Neuro: COMMON NORMALS: patient oriented x3 SENSORIUM/ORIENTATION: Yes alert Course Vital Signs: Vital signs: Vital Signs Temperature 98.2 F 10/14/23 17:30 Pulse Rate 81 10/14/23 17:58 Respiratory Rate 18 10/14/23 17:30 Blood Pressure 160/82 10/14/23 17:58 Pulse Oximetry 98 10/14/23 17:58 Oxygen Delivery Me thod Room Air 10/14/23 17:58 MDM - Back Pain/Injury Medical Decision Making Patient received Toradol 60 mg IM shot. Patient be discharged home to follow-up with her PCP Differential Diagnosis Unlikely lumbar radiculopathy, sciatica, strain of lumbar region, renal colic, pyelonephritis, thoracic back pain, AAA or discitis Medical Records I reviewed the patient's medical records. Labs I reviewed the patient's lab results. No radiology studies performed this visit Discharge Plan Discharge Patient Disposition: Home Clinical Impression: Chronic low back pain Qualifiers: Back pain laterality: bilateral Sciatica presence: without sciatica Qualified Code(s): M54.50 - Low back pain, unspecified Condition: Stable Prescriptions: No Action omeprazole 20 mg capsule,delayed release(DR/EC) 20 mg PO DAILY multivitamin [Daily Multi-Vitamin] Tablet 1 tab PO DAILY losartan 50 mg tablet 75 mg PO DAILY Qty: 135 3RF amitriptyline 50 mg tablet 50 mg PO BID Qty: 60 2RF Rx Instructions: Take 2 tablets twice daily nystatin 100,000 unit/gram cream 1 applic topical TID Qty: 30 4RF Rx Instructions: Apply three times daily clobetasol 0.05 % ointment 1 applic topical TID Qty: 30 4RF Rx Instructions: Apply three times daily amlodipine 10 mg tablet 10 mg PO DAILY Qty: 90 3RF venlafaxine 75 mg capsule,extended release 24hr 75 mg PO DAILY trazodone 150 mg tablet 150 mg PO BEDTIME sertraline 50 mg tablet 50 mg PO DAILY Discharge Orders: Discharge ED (Routine); Ordered 10/14/23 Ordered By: Kameron Abdi Referrals: Jonatahn Wyatt MD [Primary Care Provider] - 1 week Patient Instructions: Chronic Back Pain (DC) Activity Restrictions/Additional Instructions: He received Toradol 60 mg IM for your back pain. Please continue taking your oxycodone as directed. Please follow-up with your family practice physician for further evaluation and treatment. Coding Level of Care Code ED Telephoto Installer for Tony Hernandes
[2023-10-14] MEDS: ketorolac 60 mg/2 mL INJ IM (18:11)
[2023-10-14 18:35] VITALS: BP 147/82; PULSE 80; O2SAT 97
== END 2023-10-14 18:37 | disposition home or self-care (01) ==
PROVIDERS: Emergency Provider Emergency Medicine; PCP Family Medicine
DX: G89.29 Other chronic pain (principal); M54.50 Low back pain, unspecified; I10 Essential (primary) hypertension; Z85.43 Personal history of malignant neoplasm of ovary
CPT/HCPCS: 96372; 99284; J1885

== ENCOUNTER 2023-10-17 09:37 | Emergency (ER) | payer MEDICARE, SELFPAY ==
[2023-10-17 09:45] VITALS: BP 137/67; PULSE 85; RESP 18; TEMP 36.6; O2SAT 96; BMI 26.5
--- NOTE | 2023-10-17 10:35 | XRR_ITS ---
PROCEDURE INFORMATION: Exam: XR Lumbosacral Spine Exam date and time: 10/17/2023 10:43 AM Age: 83 years old Clinical indication: Low back pain; Additional info: Persistent back pain TECHNIQUE: Imaging protocol: Radiologic exam of the lumbosacral spine. Views: 2 or 3 views. COMPARISON: CR XR lumbar spine 2-3V* [id number] 05/21/2023 1:46 PM FINDINGS: Bones/joints: Osteopenia. No evidence of acute fracture. Mild anterolisthesis of L3 in respect L4. Soft tissues: Unremarkable. XR/XR lumbar spine 2-3V* [id number] IMPRESSION: Osteopenia. No evidence of acute fracture. Mild anterolisthesis of L3 in respect L4.
== END 2023-10-17 11:59 | disposition left against medical advice (07) ==
PROVIDERS: Emergency Provider Family Medicine; PCP Family Medicine
DX: Z53.21 Procedure and treatment not carried out due to patient leaving prior to being seen by health care provider (principal)
CPT/HCPCS: 72100

== ENCOUNTER 2023-10-18 10:06 | Emergency (ER) | payer MEDICARE, SELFPAY ==
[2023-10-18 10:12] VITALS: BP 168/49; PULSE 81; RESP 17; TEMP 36.7; O2SAT 96; BMI 25.7
--- NOTE | 2023-10-18 11:02 | CTR_ITS ---
PROCEDURE INFORMATION: Exam: CT Thoracic Spine Without Contrast Exam date and time: 10/18/2023 12:40 PM Age: 83 years old Clinical indication: Pain in thoracic spine; Patient HX: Pain mid back; Additional info: Intractable pain history of breast cancer TECHNIQUE: Imaging protocol: Computed tomography of the thoracic spine without contrast. Radiation optimization: All CT scans at this facility use at least one of these dose optimization techniques: automated exposure control; mA and/or kV adjustment per patient size (includes targeted exams where dose is matched to clinical indication); or iterative reconstruction. COMPARISON: 1. MR thoracic spin wo con* [id number] 12/15/2020 2:21 PM 2. MRI lumbar spine dated 01/23/2023. RADIATION DOSE METRICS: Total DLP (mGy-cm): 595.18 FINDINGS: Bones/joints: Thoracic vertebral bodies are normally aligned. Stable marked kyphosis centered at the T7-T8 level. The thoracic vertebral body heights are maintained. Stable appearance to L1 compression deformity when compared to prior MRI lumbar spine dated 01/23/2023. No significant thoracic spinal canal stenosis. Soft tissues: Mild bibasilar atelectasis/scar. Coronary arteries: Coronary artery calcifications CT/CT thoracic spin wo con* [id number] IMPRESSION: No acute bony abnormality. If symptoms persist, consider further evaluation with MRI, if MRI is clinically safe to obtain.
--- NOTE | 2023-10-18 11:02 | CTR_ITS ---
PROCEDURE INFORMATION: Exam: CT Lumbar Spine Without Contrast Exam date and time: 10/18/2023 12:37 PM Age: 83 years old Clinical indication: Other: Mid back pain; Additional info: Intractable pain history of breast cancer TECHNIQUE: Imaging protocol: Computed tomography of the lumbar spine without contrast. Radiation optimization: All CT scans at this facility use at least one of these dose optimization techniques: automated exposure control; mA and/or kV adjustment per patient size (includes targeted exams where dose is matched to clinical indication); or iterative reconstruction. COMPARISON: MR lumbar spine wo/w con [id number] 01/23/2023 1:56 PM RADIATION DOSE METRICS: Total DLP (mGy-cm): 813.8 FINDINGS: Bones/joints: Stable appearance to L1 compression deformity with up to 30% loss in height. The remaining lumbar vertebral body heights are maintained. Stable grade 1 anterolisthesis of L3 on L4 measuring up to 0.4 cm. Stable moderate disc space narrowing at L5-S1 and mild disc space narrowing at L3-L4 and L4-L5. L1-L2: No significant disc bulge or herniation. No severe spinal canal stenosis. No significant neural foraminal narrowing. L2-L3: Broad concentric disc bulge and bilateral facet arthropathy contributing to mild central canal stenosis. Moderate left neuroforaminal narrowing. L3-L4: Broad concentric disc bulge and bilateral facet arthropathy contributing to severe central canal stenosis. Moderate bilateral neuroforaminal narrowing. L4-L5: Broad concentric disc bulge and bilateral facet arthropathy contributing to [id number]-yx-csbdxday central canal stenosis. Mild bilateral neuroforaminal narrowing . L5-S1: Broad concentric disc bulge and bilateral facet arthropathy contributing to no significant central canal stenosis. Moderate left and mild right neuroforaminal narrowing. Soft tissues: Colonic diverticulosis. CT/CT lumbar spine wo con* [id number] IMPRESSION: Multilevel degenerative changes of the lumbar spine as outlined above. If symptoms persist, consider further evaluation with MRI, if MRI is clinically safe to obtain.
--- NOTE | 2023-10-18 11:03 | ECG_ITS ---
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 Measurements Intervals [place] Rate: 76 P: 50 NE: 175 QRS: 50 QRSD: 126 T: 65 QT: 386 QTc: 436 Interpretive Statements SINUS RHYTHM MODERATE INTRAVENTRICULAR CONDUCTION DELAY [105+ ms QRS DURATION, 80+ ms Q/S IN V1/V2, NO Q AND 60+ ms R IN I/aVL/V5/V6] MODERATE ST DEPRESSION [0.05+ mV ST DEPRESSION] No previous ECG available for comparison Electronically Signed On 10-18-2023 14:24:43 CDT by Bib Barriga M.D. [email or web address]
[2023-10-18] MEDS: ketorolac 30 mg/mL INJ IVP (11:33)
[2023-10-18] MEDS: orphenadrine 30 mg/mL Inj 2 mL 60 MG IVP (11:33)
[2023-10-18] MEDS: morphine 4 mg/mL SDV 1 mL IVP ×2 (11:33→11:55)
--- NOTE | 2023-10-18 11:37 | ED_ITS ---
HPI - Back Pain/Injury 2 General: Chief Complaint: Back Pain/Injury Stated Complaint: back pain sent by PCP Time Seen by Provider: 10/18/23 11:02 Source: patient Mode of arrival: ambulatory History of Present Illness: 83-year-old female presents emergency ro om with intractable back pain mid to lower thoracic region. She has a history of ovarian cancer. She been seeing her PCP. He has seen her multiple times in the last few weeks he has tried multiple trigger point injections oral medications despite this she continues to have severe pain plain films have been unremarkable lower spine. No history of any trauma. Dr. Wyatt had called ahead that her pain is intractable and he was referring her to the emergency room for further evaluation and pain control. She has not had any thoracic imaging done. MD elicited complaint: back pain Pertinent past history: prior back pain and cancer (History of ovarian CA) Onset (ago): week(s) Timing: constant Severity: severe Quality: sharp Location: thoracic spine Radiation: none Exacerbating factors: movement Associated symptoms: Deny abdominal pain, arthralgias, chills, change in bowel habits, difficulty walking, dysuria, fatigue, fecal incontinence, fever(s), hematuria, myalgias, nausea, numbness, syncope, tingling/numbness/burning, urinary frequency, urinary urgency, vomiting or weakness Treatments prior to arrival: NSAIDS, acetaminophen, other medications and prescription analgesics Work related injury: No Review of Systems 2 Const: Denies: fever(s), chills or fatigue Card: Denies: chest pain or syncope Resp: Denies: dyspnea GI: Denies: abdominal pain, nausea, vomiting, fecal incontinence or change in bowel habits : Denies: dysuria, urinary frequency, urinary urgency or hematuria Musc: Denies: neck pain or back pain Skin/Breast: Denies: rash Neuro: Denies: difficulty walking PFSH ED 2 PFSH: Medical History History of nonmelanoma skin cancer Fall Fracture of humerus, proximal, right, closed DVT prophylaxis Hypokalemia Fracture of humerus Family history of malignant melanoma Ovarian cancer History of ovarian cancer Left bundle branch block Depression Hypertension Surgical History Status post total replacement of right shoulder History of hysterectomy History of left knee replacement H/O total hysterectomy Family History Mother Stroke Hypertension Other Breast cancer Colon cancer Diabetes Heart disease Ovarian cancer Thyroid disease Uterine cancer Social History Substance/Drug Use: never Physical Exam 2 Const: COMMON NORMALS: no acute distress GENERAL APPEARANCE: cooperative and comfortable ORIENTATION/CONSCIOUSNESS: Yes awake, Yes oriented to person, Yes oriented to place and Yes oriented to time HENMT: COMMON NORMALS: normocephalic, atraumatic and hearing grossly normal bilaterally HEAD & SCALP: normocephalic and atraumatic Resp: COMMON NORMALS: normal respiratory effort, No retractions, No use of accessory muscles and clear to auscultation bilaterally AUSCULTATION: clear to auscultation bilaterally Cardio: COMMON NORMALS: regular rate, regular rhythm and No murmurs present (Cardio) RATE: regular rate RHYTHM: regular rhythm GI: COMMON NORMALS: Soft to palpation and No hepatosplenomegaly present A USCULTATION: Yes normoactive bowel sounds PALPATION: Yes Soft to palpation, No Tenderness to palpation present (GI), No Guarding due to palpation present (GI) and Yes No hepatosplenomegaly present Back/Pelvis: OTHER: Lower thoracic spine nearly at the thoracolumbar junction this focus of pain but not reproducible with palpation. No skin changes or rash noted Extremity: COMMON NORMALS: normal to inspection, capillary refill normal, no clubbing, cyanosis or edema, no calf tenderness and no pedal edema Neuro: SENSORIUM/ORIENTATION: Yes oriented to person, Yes oriented to place and Yes oriented to time Skin: COMMON NORMALS: no rashes or lesions noted GENERAL SKIN EXAM: no rashes or lesions noted Course 2 Vital Signs: Vital signs: Vital Signs Temperature 98.1 F 10/18/23 10:12 Pulse Rate 74 10/18/23 14:00 Respiratory Rate 16 10/18/23 14:00 Blood Pressure 157/62 10/18/23 13:00 Pulse Oximetry 94 10/18/23 14:00 Oxygen Delivery Me thod Room Air 10/18/23 14:00 MDM - Back Pain/Injury Medical Decision Making Dr. Wyatt had called regarding this patient and directed her to the emergency room from his office.. He tried multiple trigger point injections medication adjustments over the last several days and the patient still had persistent back pain. She has a history of ovarian cancer no known history of recurrences no trauma. Patient was brought to the emergency room given several doses of narcotics which eventually did control her pain we did CTs of the lumbar and thoracic spine both of which were negative for any acute pathology. Patient will be discharged home we contacted Dr. Wyatt after workup was complete he is sent in an increased dose of oxycodone, we asked her to stop her tizanidine and start Valium 5 mg 1 every 8 hours as needed. Medical Records I reviewed the patient's medical records. Labs I reviewed the patient's lab results. 10/18/23 11:34 10/18/23 11:34 Radiology Impressions Lumbar Spine CT 10/18/23 11:02 IMPRESSION: Multilevel degenerative changes of the lumbar spine as outlined above. If symptoms persist, consider further evaluation with MRI, if MRI is clinically safe to obtain. Thoracic Spine CT 10/18/23 11:02 IMPRESSION: No acute bony abnormality. If symptoms persist, consider further evaluation with MRI, if MRI is clinically safe to obtain. Laboratory Results WBC 7.44 10^3/uL (3.29-11.43) 10/18/23 11:34 RBC 4.58 10^6/uL (3.85-5.65) 10/18/23 11:34 Hgb 14.50 g/dL (11.27-16.99) 10/18/23 11:34 Hct 42.7 % (36-47) 10/18/23 11:34 MCV 93.2 fl (85-98) 10/18/23 11:34 MCH 31.7 pg (27-33) 10/18/23 11:34 MCHC 34.0 g/dL (30-55) 10/18/23 11:34 RDW 12.8 % (12.1-15.1) 10/18/23 11:34 Plt Count 278 10^3/cmm (157-399) 10/18/23 11:34 MPV 8.9 fL (7.4-10.4) 10/18/23 11:34 Neut % (Auto) 72.5 % 10/18/23 11:34 Lymph % (Auto) 20.8 % 10/18/23 11:34 [place] % (Auto) 5.5 % 10/18/23 11:34 Eos % (Auto) 0.5 % 10/18/23 11:34 Baso % (Auto) 0.3 % 10/18/23 11:34 Neut # (Auto) 5.39 10^3/uL (1.8-7.7) 10/18/23 11:34 Lymph # (Auto) 1.6 10^3/uL (0.8-4.8) 10/18/23 11:34 [place] # (Auto) 0.4 10^3/uL (0.2-0.9) 10/18/23 11:34 Eos # (Auto) 0.0 10^3/uL (0.0-0.8) 10/18/23 11:34 Baso # (Auto) 0.0 10^3/uL (0.0-0.1) 10/18/23 11:34 Nucleated RBC % (auto) 0 % 10/18/23 11:34 Nucleated RBCs # 0.0 /100WBC 10/18/23 11:34 Sodium 140 mmol/L (136-145) 10/18/23 11:34 Potassium 4.6 mmol/L (3.5-5.1) 10/18/23 11:34 Chloride 101 mmol/L (98-107) 10/18/23 11:34 Carbon Dioxide 26 mmol/L (22-29) 10/18/23 11:34 Anion Gap 17.6 (5-19) 10/18/23 11:34 BUN 21 mg/dL (8-23) 10/18/23 11:34 Creatinine 0.7 mg/dL (0.5-0.9) 10/18/23 11:34 GFR Calculation Not Reportable 10/18/23 11:34 Glucose 110 mg/dL (65-115) 10/18/23 11:34 Calculated Osmolality 294 mOsm/kg (285-295) 10/18/23 11:34 Calcium 10.2 mg/dL (8.5-10.5) 10/18/23 11:34 Total Bilirubin 0.4 mg/dL (0.15-1.2) 10/18/23 11:34 AST 22 U/L (0-32) 10/18/23 11:34 ALT 22 U/L (0-33) 10/18/23 11:34 Alkaline Phosphatase 88 U/L (35-105) 10/18/23 11:34 Total Protein 8.5 g/dL (6.6-8.7) 10/18/23 11:34 Albumin 4.8 g/dL (3.5-5.2) 10/18/23 11:34 Globulin 3.7 g/dL (1.3-4.6) 10/18/23 11:34 All radiology interpretation(s) finalized by discharge Discharge Plan Discharge Patient Disposition: Home Clinical Impression: Chronic back pain Condition: Stable Prescriptions: New Valium 5 mg tablet 5 mg PO Q8H PRN (Reason: muscle spasm) Qty: 14 0RF No Action omeprazole 20 mg capsule,delayed release(DR/EC) 20 mg PO DAILY multivitamin [Daily Multi-Vitamin] Tablet 1 tab PO DAILY losartan 50 mg tablet 75 mg PO DAILY Qty: 135 3RF amlodipine 10 mg tablet 10 mg PO DAILY Qty: 90 3RF venlafaxine 75 mg capsule,extended release 24hr 75 mg PO DAILY trazodone 150 mg tablet 150 mg PO BEDTIME sertraline 50 mg tablet 50 mg PO DAILY oxycodone-acetaminophen 5-325 mg tablet 1 tab PO Q6H PRN (Reason: Pain) Discharge Orders: Discharge ED (Routine); Ordered 10/18/23 Ordered By: Marcelino Landers Referrals: Jonathan Wyatt MD [Primary Care Provider] - Discharge Diet: Usual diet Discharge Activity: Increase activity as tolerated Patient Instructions: Opioid Safety, Pain Management Activity Restrictions/Additional Instructions: Thank you for choosing [facility] for your healthcare needs today. Please realize this is an emergency room and that we are providing you with a medical screening exam and this may not be complete and all inclusive of all the testing and or work up that you may need to determine your ailment or severity of your illness. It is very important that you follow up as instructed or that you return to the Emergency Department should you have concerns or if your condition changes or worsens in any way. You were seen today for chronic back pain. We had discussed your case with your primary care doctor CTs of your thoracic and lumbar spine were done which did not show any acute or emergent conditions. Your primary care doctor has sent an increased dose of your pain medications and asked us to send in a new muscle relaxer. You should stop your tizanidine and instead use Valium 5 mg 1 every 8 hours as needed. Contact your primary care doctor and your pain clinic doctor as soon as you are able next week. Coding Level of Care Code ED Medicaid Plan Compliance Director for Tony Hernandes
[2023-10-18 11:41] LABS: Basophils % 0.3 %; Eosinophils % 0.5 %; Hematocrit 42.7 % (36-47); Lymphocytes # 1.6 10^3/uL (0.8-4.8); Lymphocytes % 20.8 %; Mean Corpuscular Hemoglobin 31.7 pg (27-33); Mean Corpuscular Volume 93.2 fl (85-98); Mean Platelet Volume 8.9 fL (7.4-10.4); Monocytes # 0.4 10^3/uL (0.2-0.9); Monocytes % 5.5 %; Neutrophils # 5.39 10^3/uL (1.8-7.7); Neutrophils % 72.5 %; Nucleated Red Blood Cells % 0 %; Platelet Count 278 10^3/cmm (157-399); Red Blood Count 4.58 10^6/uL (3.85-5.65); Red Cell Distribution Width 12.8 % (12.1-15.1); White Blood Count 7.44 10^3/uL (3.29-11.43)
[2023-10-18 12:02] LABS: Alanine Aminotransferase 22 U/L (0-33); Albumin Level 4.8 g/dL (3.5-5.2); Alkaline Phosphatase 88 U/L (35-105); Anion Gap 17.6 (5-19); Aspartate Amino Transferase 22 U/L (0-32); Blood Urea Nitrogen 21 mg/dL (8-23); Calcium 10.2 mg/dL (8.5-10.5); Carbon Dioxide 26 mmol/L (22-29); Chloride 101 mmol/L (98-107); Creatinine Clr Calc Pharmacy 52.2706; Globulin 3.7 g/dL (1.3-4.6); Glucose 110 mg/dL (65-115); Osmolality Calculated 294 mOsm/kg (285-295); Potassium 4.6 mmol/L (3.5-5.1); Sodium 140 mmol/L (136-145); Total Bilirubin 0.4 mg/dL (0.15-1.2); Total Protein 8.5 g/dL (6.6-8.7)
[2023-10-18 12:30] VITALS: RESP 18; O2SAT 96
[2023-10-18] MEDS: HYDROmorphone 1 mg/mL INJ 1 mL IVP (12:30)
[2023-10-18 13:00] VITALS: BP 157/62; PULSE 74; RESP 20; O2SAT 96
[2023-10-18 13:30] VITALS: PULSE 76; RESP 16; O2SAT 94
[2023-10-18 14:00] VITALS: PULSE 74; RESP 16; O2SAT 94
[2023-10-18 14:26] VITALS: BP 161/70; PULSE 78; RESP 16; TEMP 36.7; O2SAT 95
== END 2023-10-18 14:28 | disposition home or self-care (01) ==
PROVIDERS: Emergency Provider Family Medicine; PCP Family Medicine
DX: G89.29 Other chronic pain (principal); M54.6 Pain in thoracic spine; I10 Essential (primary) hypertension; Z85.43 Personal history of malignant neoplasm of ovary
CPT/HCPCS: 72128; 72131; 80053; 85025; 93005; 96374; 96375; 96376; 99285; J1170; J1885; J2270; J2360

== ENCOUNTER 2023-10-20 20:26 | Emergency (ER) | payer MEDICARE, SELFPAY ==
[2023-10-20 20:31] VITALS: BP 150/68; PULSE 82; RESP 20; TEMP 36.4; O2SAT 93; BMI 26.5
--- NOTE | 2023-10-20 21:12 | W.ED.BACK ---
HPI - Back Pain/Injury General: Chief Complaint: Back Pain/Injury Stated Complaint: back pain Time Seen by Provider: 10/20/23 21:10 History of Present Illness: 83-year-old female with a history of chronic back pain. She has been in the emergency room a few times recently. She has had worsening issues with her chronic back pain. She was seen here 2 days ago and had imaging which showed no acute process. Valium was added to her home oxycodone. She presents by ambulance today with worsening pain. She says her Valium and oxycodone are not helping. 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 Review of Systems Narrative: Constitutional symptoms: Negative except as documented in HPI. Skin symptoms: Negative except as documented in HPI. Eye symptoms: Negative except as documented in HPI. ENMT symptoms: Negative except as documented in HPI. Respiratory symptoms: Negative except as documented in HPI. Cardiovascular symptoms: Negative except as documented in HPI. Gastrointestinal symptoms: Negative except as documented in HPI. Genitourinary symptoms: Negative except as documented in HPI. Musculoskeletal symptoms: Negative except as documented in HPI. Neurologic symptoms: Negative except as documented in HPI. Psychiatric symptoms: Negative except as documented in HPI. Endocrine symptoms: Negative except as documented in HPI. [facility] ED PFSH: Medical History History of nonmelanoma skin cancer Fall Fracture of humerus, proximal, right, closed DVT prophylaxis Hypokalemia Fracture of humerus Family history of malignant melanoma Ovarian cancer History of ovarian cancer Left bundle branch block Depression Hypertension Surgical History Status post total replacement of right shoulder History of hysterectomy History of left knee replacement H/O total hysterectomy Family History Mother Stroke Hypertension Other Breast cancer Colon cancer Diabetes Heart disease Ovarian cancer Thyroid disease Uterine cancer Social History Substance/Drug Use: never Physical Exam Narrative: EXAM NARRATIVE: General: Alert, patient appears in pain. She is a bit tachypneic. Skin: warm and dry Head: Normocephalic Neck: Trachea midline Eye: Extraocular movements are intact. Ears, nose, mouth and throat: Oral mucosa moist Respiratory: Respirations are non-labored Musculoskeletal: Normal ROM Neurological: Alert and oriented, No focal neurological deficit observed. Psychiatric: Cooperative, appropriate mood & affect. Course Vital Signs: Vital signs: Vital Signs Temperature 97.5 F L 10/20/23 20:31 Pulse Rate 82 10/20/23 20:31 Respiratory Rate 20 H 10/20/23 20:31 Blood Pressure 150/68 10/20/23 20:31 Pulse Oximetry 93 10/20/23 20:31 Oxygen Delivery Me thod Room Air 10/20/23 20:31 MDM - Back Pain/Injury Medical Decision Making Patient has a physician who is controlling her pain normally. This is the weekend and so I will provide her with IV pain medications for acute exacerbation and she needs to follow-up with her primary doctor about changes in her medication. She has had complete workup 2 days ago that was negative. Assessment and plan: Chronic pain with acute exacerbation - Discharged home - Discussed plan with patient. Answered any questions. - Evaluation and treatment of this problem were appropriate in the emergency setting. No radiology studies performed this visit Discharge Plan Discharge Patient Disposition: Home Clinical Impression: Chronic back pain Condition: Stable Prescriptions: No Action omeprazole 20 mg capsule,delayed release(DR/EC) 20 mg PO DAILY multivitamin [Daily Multi-Vitamin] Tablet 1 tab PO DAILY losartan 50 mg tablet 75 mg PO DAILY Qty: 135 3RF amlodipine 10 mg tablet 10 mg PO DAILY Qty: 90 3RF venlafaxine 75 mg capsule,extended release 24hr 75 mg PO DAILY trazodone 150 mg tablet 150 mg PO BEDTIME sertraline 50 mg tablet 50 mg PO DAILY oxycodone-acetaminophen 5-325 mg tablet 1 tab PO Q6H PRN (Reason: Pain) Valium 5 mg tablet 5 mg PO Q8H PRN (Reason: muscle spasm) Qty: 14 0RF Discharge Orders: Discharge ED (Routine); Ordered 10/20/23 Ordered By: Allegra Coleman Referrals: Jonathan Wyatt MD [Primary Care Provider] - 1-3 days Patient Instructions: Opioid Safety, Pain Management Activity Restrictions/Additional Instructions: Thank you for choosing [facility] [place] for your healthcare needs today. Please realize this is an emergency room and that we are providing you with a medical screening exam and this may not be complete and all inclusive of all the testing and or work up that you may need to determine your ailment or severity of your illness. You have been screened and evaluated and felt safe for discharge. Health conditions do change or evolve sometimes and as such it is important that you follow up with your Primary Doctor to be re checked, 3-5 days is a general good time frame for follow up. You are always welcome to return to the ED for re assessment if your symptoms are worsening or you have new concerns Coding Level of Care Code ED Handle Rounder Operator for Tony Hernandes
[2023-10-20 21:18] VITALS: RESP 20; O2SAT 96
[2023-10-20] MEDS: HYDROmorphone 1 mg/mL INJ 1 mL 2 MG IVP (21:18)
[2023-10-20] MEDS: orphenadrine 30 mg/mL Inj 2 mL 60 MG IVP (21:24)
[2023-10-21 00:48] VITALS: PULSE 70; RESP 16; O2SAT 93
== END 2023-10-21 00:49 | disposition home or self-care (01) ==
PROVIDERS: Emergency Provider Emergency Medicine; PCP Family Medicine
DX: G89.29 Other chronic pain (principal); M54.9 Dorsalgia, unspecified; I10 Essential (primary) hypertension; Z85.43 Personal history of malignant neoplasm of ovary
CPT/HCPCS: 96374; 96375; 99284; J1170; J2360

== ENCOUNTER → 2024-01-09 10:30 | Outpatient (BNVA) | payer MEDICARE, SELFPAY | PROVIDERS: PCP Family Medicine; Visit Provider Nurse Practitioner Family | DX: I10 Essential (primary) hypertension (principal) | CPT/HCPCS: 99213 ==

== ENCOUNTER 2024-02-20 11:51 | Outpatient (CLI) | payer MEDICARE, SELFPAY ==
--- NOTE | 2024-02-20 13:22 | XR_ITS ---
WS: [id number] Examination: XR hip RT 2-3V wo/w pel* [id number] Reason for Exam: PAIN IN RIGHT HIP JOINT Date: 02/20/2024 Comparison: 04/25/2023 Findings: The bone density is diminished. There is no destruction. There is no displaced fracture or dislocation of the right hip. Hypertrophic changes of the thoracic spine are present. Degenerative changes are present. There is mild joint space narrowing. Small acetabular and femoral h ead osteophytes are present. Inguinal region soft tissue calcification is identified. XR/XR hip RT 2-3V wo/w pel* [id number] Impression: There is osteopenia and mild degenerative changes present. There is no fracture or dislocation.
--- NOTE | 2024-02-20 13:22 | XR_ITS ---
WS: [email or web address] Examination: XR lumbar spine 2-3V* [id number] Reason for Exam: LULMBAR RADICULOPATHY Date: 02/20/2024 Comparison: 10/17/2023 Findings: The pedicles are intact. The bone density is diminished. Again there is mild superior endplate compre ssion of L1. No other wedging is suspected although the entirety of L3 and L4 are not seen. Grade 1 anterolisthesis at L3-4 is again noted. Facet arthropathy is identified. XR/XR lumbar spine 2-3V* [id number] Impression: Mild degenerative changes are present There is generally unchanged compression of L1 and anterolisthesis at L3-4.
== END 2024-02-20 11:52 | disposition home or self-care (01) ==
LOC: RADOUTREAD 11:52
PROVIDERS: PCP Family Medicine; Visit Provider Family Medicine
DX: M25.551 Pain in right hip (principal)

== ENCOUNTER → 2024-06-16 14:40 | Outpatient (BNVA) | payer MEDICARE, SELFPAY | PROVIDERS: PCP Family Medicine; Visit Provider Internal Medicine | DX: I10 Essential (primary) hypertension (principal); I44.7 Left bundle-branch block, unspecified | CPT/HCPCS: 99214 ==

== ENCOUNTER 2024-07-17 14:07 | Emergency (ER) | payer MEDICARE, SELFPAY ==
[2024-07-17 14:15] VITALS: BP 139/59; PULSE 88; RESP 18; TEMP 36.2; O2SAT 96; BMI 24.9
--- NOTE | 2024-07-17 14:33 | ED_ITS ---
HPI - Back Pain/Injury 2 General: Chief Complaint: Back Pain/Injury Stated Complaint: back pain Time Seen by Provider: 07/17/24 14:27 Source: patient Mode of arrival: ambulatory Limitations: no limitations History of Present Illness: Patient is an 84-year-old female here for known intractable back pain. Patient states she has had pain to the right side of her back for years. She has been told that pain is intractable. She sees her primary care provider, Dr. Wyatt, as well as Dr. Rinaldi at [facility]. Patient is on Oxycodone for her pain. Patient has no new complaints today. She is wanting something for pain her/today. MD elicited complaint: back pain Onset (ago): year(s) Severity: severe Similar Symptoms Previously: Yes Location: thoracic spine and right upper back Radiation: none Exacerbating factors: none Relieving factors: none Associated symptoms: Deny abdominal pain, dysuria, fever(s) or hematuria Work related injury: No Related Data Home Medications Medication Instructions Recorded Confirmed multivitamin (Daily Multi-Vitamin 1 tab PO DAILY 07/05/20 06/16/24 tablet) omeprazole 20 mg capsule,delayed 20 mg PO DAILY 07/05/20 06/16/24 release sertraline 50 mg tablet 50 mg PO DAILY 08/11/21 06/16/24 trazodone 150 mg tablet 150 mg PO BEDTIME 08/11/21 06/16/24 venlafaxine 75 mg capsule,extended 75 mg PO DAILY 08/11/21 06/16/24 release 24 hr oxycodone-acetaminophen 5 mg-325 1 tab PO Q6H PRN Pain 10/18/23 06/16/24 mg tablet Previous Rx's Medication Instructions Recorded amlodipine 10 mg tablet See Rx Instructions .Route 10/29/23 .COMPLEX #90 tabs losartan 50 mg tablet See Rx Instructions .Route 10/29/23 .COMPLEX #135 tabs Allergies Allergy/AdvReac Type Severity Reaction Status Date / Time No Known Allergies Allergy Verified 07/17/24 14:15 Review of Systems 2 Const: Denies: fever(s) Card: Denies: chest pain Resp: Denies: dyspnea GI: Denies: abdominal pain : Denies: flank pain, dysuria or hematuria Musc: Reports: back pain; Denies: neck pain, extremity pain, extremity swelling, joint pain or joint swelling Skin/Breast: Denies: rash Neuro: Denies: numbness in extremities or sensory changes PFSH ED 2 PFSH: Medical History History of nonmelanoma skin cancer Fall Fracture of humerus, proximal, right, closed DVT prophylaxis Hypokalemia Fracture of humerus Family history of malignant melanoma Ovarian cancer History of ovarian cancer Left bundle branch block Depression Hypertension Surgical History Status post total replacement of right shoulder History of hysterectomy History of left knee replacement H/O total hysterectomy Family History Mother Stroke Hypertension Other Breast cancer Colon cancer Diabetes Heart disease Ovarian cancer Thyroid disease Uterine cancer Social History Smoking and tobacco/nicotine status: never used tobacco/nicotine Substance/Drug Use: never Physical Exam 2 Const: COMMON NORMALS: average body habitus, patient oriented x3, no limitations, healthy appearing, alert and well nourished GENERAL APPEARANCE: cooperative and in distress (complaining of back pain) O RIENTATION/CONSCIOUSNESS: Yes awake, Yes oriented to person, Yes oriented to place and Yes oriented to time Chest: COMMONS NORMALS: normal inspection of the chest and normal palpation of entire chest wall Resp: COMMON NORMALS: normal respiratory effort and clear to auscultation bilaterally AUSCULTATION: clear to auscultation bilaterally Cardio: COMMON NORMALS: regular rate and regular rhythm RATE: regular rate RHYTHM: regular rhythm GI: COMMON NORMALS: Normal to inspection, nondistended, normoactive bowel sounds present, Soft to palpation and non-tender PALPATION: Yes Soft to palpation Back/Pelvis: COMMON NORMALS: straight leg raise negative bilaterally P ITZEL: No sciatic notch tenderness SACROILIAC JOINTS: Yes SI joints normal SACRUM: no tenderness COCCYX: no tenderness BACK IMAGE (FEMALE): 1. TTP Extremity: GENERAL: Yes normal exam except as noted Neuro: COMMON NORMALS: patient oriented x3, moves all extremities, no focal motor deficits and no sensory deficits noted SENSORIUM/ORIENTATION: Yes alert, Yes oriented to person, Yes oriented to place and Yes oriented to time Skin: COMMON NORMALS: no rashes or lesions noted GENERAL SKIN EXAM: no rashes or lesions noted Course 2 Vital Signs: Vital signs: Vital Signs Temperature 97.2 F L 07/17/24 14:15 Pulse Rate 75 07/17/24 15:21 Respiratory Rate 18 07/17/24 15:21 Blood Pressure 147/72 07/17/24 15:21 Pulse Oximetry 95 07/17/24 15:21 Oxygen Delivery Me thod Room Air 07/17/24 15:21 MDM - Back Pain/Injury Medical Decision Making Patient feeling much better after IM medications given here. She is ambulatory without difficulty. 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 Medical Records I reviewed the patient's medical records. No radiology studies performed this visit Discharge Plan Discharge Patient Disposition: Home Clinical Impression: Acute on chronic back pain Condition: Stable Prescriptions: No Action omeprazole 20 mg capsule,delayed release(DR/EC) 20 mg PO DAILY multivitamin [Daily Multi-Vitamin] Tablet 1 tab PO DAILY amlodipine 10 mg tablet See Rx Instructions .ROUTE .COMPLEX Qty: 90 3RF Dose Instruction: TAKE 1 TABLET BY MOUTH EVERY DAY Rx Instructions: TAKE 1 TABLET BY MOUTH EVERY DAY losartan 50 mg tablet See Rx Instructions .ROUTE .COMPLEX Qty: 135 3RF Dose Instruction: TAKE 1&1/2 TABLETS BY MOUTH DAILY Rx Instructions: TAKE 1&1/2 TABLETS BY MOUTH DAILY venlafaxine 75 mg capsule,extended release 24hr 75 mg PO DAILY trazodone 150 mg tablet 150 mg PO BEDTIME sertraline 50 mg tablet 50 mg PO DAILY oxycodone-acetaminophen 5-325 mg tablet 1 tab PO Q6H PRN (Reason: Pain) Discharge Orders: Discharge ED (Routine); Ordered 07/17/24 Ordered By: Monserrat Cuenca Referrals: Jonathan Wyatt MD [Primary Care Provider] - Activity Restrictions/Additional Instructions: As we discussed please continue to follow-up with your painter drum. Coding Level of Care Code ED Remarketing Manager for Tony Hernandes
[2024-07-17 15:07] VITALS: RESP 18
[2024-07-17] MEDS: morphine 4 mg/mL SDV 1 mL IM (15:07)
[2024-07-17] MEDS: LORazepam 2 mg/mL INJ 1 mL 1 MG IM (15:09)
[2024-07-17] MEDS: orphenadrine 30 mg/mL Inj 2 mL 60 MG IM (15:10)
[2024-07-17 15:21] VITALS: BP 147/72; PULSE 75; RESP 18; O2SAT 95
[2024-07-17 15:51] VITALS: BP 138/69; PULSE 73; O2SAT 96
== END 2024-07-17 15:53 | disposition home or self-care (01) ==
PROVIDERS: Emergency Provider Physician Assistant; PCP Family Medicine
DX: M54.9 Dorsalgia, unspecified (principal); I10 Essential (primary) hypertension
CPT/HCPCS: 96372; 99284; J2060; J2270; J2360

== ENCOUNTER → 2024-08-03 10:20 | Outpatient (BNVA) | payer MEDICARE, SELFPAY | PROVIDERS: PCP Family Medicine; Visit Provider Anesthesiology Pain Medicine | DX: M48.062 Spinal stenosis, lumbar region with neurogenic claudication (principal) | CPT/HCPCS: 99204 ==

== ENCOUNTER → 2024-12-14 13:53 | Outpatient (BNVA) | payer MEDICARE, SELFPAY | PROVIDERS: PCP Family Medicine; Visit Provider Internal Medicine | DX: I10 Essential (primary) hypertension (principal); I44.7 Left bundle-branch block, unspecified | CPT/HCPCS: 99214 ==

== ENCOUNTER → 2025-03-02 10:12 | Outpatient (BNVA) | payer MEDICARE, SELFPAY | PROVIDERS: PCP Family Medicine; Visit Provider Nurse Practitioner Family | DX: R23.3 Spontaneous ecchymoses (principal); I87.2 Venous insufficiency (chronic) (peripheral); L81.4 Other melanin hyperpigmentation; L57.8 Other skin changes due to chronic exposure to nonionizing radiation; L82.1 Other seborrheic keratosis; D36.15 Benign neoplasm of peripheral nerves and autonomic nervous system of abdomen; Z80.8 Family history of malignant neoplasm of other organs or systems; L57.0 Actinic keratosis | CPT/HCPCS: 17000; 99213 ==

== ENCOUNTER → 2025-06-15 13:13 | Outpatient (BNVA) | payer MEDICARE, SELFPAY | PROVIDERS: PCP Family Medicine; Visit Provider Internal Medicine | DX: I10 Essential (primary) hypertension (principal); R60.0 Localized edema | CPT/HCPCS: 99213 ==